=== PATIENT | female | born 1925 | race Caucasian/White ===

== ENCOUNTER → 2016-03-16 | Outpatient (CLI) | payer OTHER ==
[~2016-03-16] MED LIST: AMLO2.5T PO; ASPEC81 PO; ATOR-24 PO; ATV1 PO; BIMA0.01 OP; CALC500C70 PO; CZR50 PO; DORZ1SOL6 OP; LOSA1TAB38 PO; LPR25 PO; MAGN250T3 PO; MULT-506 PO; OMEG10007 PO; OMEP40CA PO; PSYL55.43 PO; PYRI100T4 PO; SYN75 PO; VITA1TAB4 PO; XRL15 PO; [UNRECOGNIZED DRUG - CODE] OTB
--- NOTE | 2016-03-16 16:45 | DIAGNOSTIC IMAGING REPORT ---
CHEST 2 VIEWS ROUTINE CLINICAL HISTORY: PERSISTENT COUGH AFG TER CLINICAL PNEUMONIA dyspnea COMPARISON STUDY: 12/30/2013 FINDINGS: Chronic fibrotic change left base. Lungs otherwise are clear. Postoperative change of the right breast and right axillary region. IMPRESSION: Chronic and postoperative change. No acute process. Electronically signed by: Merrill Moulton M.D. 03/16/2016 4:43 PM
== END | disposition home or self-care (01) ==
LOC: C.RAD 16:13
PROVIDERS: ATTEND Family Medicine
DX: R05 Cough (principal); C91.10 Chronic lymphocytic leukemia of B-cell type not having achieved remission

== ENCOUNTER → 2016-11-02 | Outpatient (CLI) | payer OTHER ==
[~2016-11-02] MED LIST changes: -AMLO2.5T PO; -ATOR-24 PO; -CZR50 PO; -LOSA1TAB38 PO; -LPR25 PO; -PYRI100T4 PO; -VITA1TAB4 PO; -XRL15 PO
--- NOTE | 2016-11-02 16:50 | DIAGNOSTIC IMAGING REPORT ---
TWO VIEW CHEST CLINICAL HISTORY: Cough. FINDINGS: PA and lateral chest radiographs are compared to study dated 03/16/2016. The heart is enlarged and there is atherosclerotic calcification of the thoracic aorta. The pulmonary vasculature is noncongested. Findings suggest obstructive physiology. Chronic interstitial thickening is similar to previous. No airspace consolidation or pleural effusion is identified. A nipple shadow projects over the right lower lung. There is no pneumothorax. The bony thorax appears intact. Surgical clips project over the right breast and the right axilla. IMPRESSION: Cardiomegaly and suspect obstructive physiology. No airspace consolidation or pleural effusion is identified. Electronically signed by: Karan Miller M.D. 11/02/2016 4:49 PM Dictated Date/Time: 11/02/2016 4:47 PM
== END | disposition home or self-care (01) ==
LOC: C.RAD 15:51
PROVIDERS: ATTEND Family Medicine
DX: R05 Cough (principal)

== ENCOUNTER → 2017-01-03 | Outpatient (CLI) | payer OTHER ==
--- NOTE | 2017-01-03 13:36 | DIAGNOSTIC IMAGING REPORT ---
(CHEST) THORAX WITHOUT CLINICAL HISTORY: R05 cough. Interstitial lung disease. I COMPARISON STUDY: Chest x-ray dated 11/02/2016 CT DOSE: 205.97 mGy.cm TECHNIQUE: CT of the thorax was performed from the thoracic inlet to the lung bases. Images are reviewed in the axial, sagittal, and coronal planes. IV contrast was not administered for this examination. A dose lowering technique was utilized adhering to the principles of ALARA. FINDINGS: Thyroid: Imaged portions of the thyroid gland are normal in appearance. Thoracic aorta: The thoracic aorta is normal in course and caliber, noting standard 3 vessel arch anatomy. Heart: There are coronary artery calcifications present. Lungs and pleural spaces: No pleural effusions are visualized. There is pulmonary emphysema. There are right middle lobe bronchiectatic and atelectatic changes. There are branching tubular structures within the left lower lobe, consistent with mucoid impaction. There are tree-in-bud opacities within the right lower lobe. Areas of mucoid impaction within the right lower lobe are also present. There is a solid 5 mm left lower lobe pulmonary nodule as visualized in image #[id number]. There is a solid 3 mm right lower lobe pulmonary nodule as visualized on image #[id number]. Mediastinum: There are mildly enlarged mediastinal lymph nodes measuring up to 12 mm in short axis Stefanie: Left hilar lymph nodes are felt to be borderline enlarged Axilla: There are surgical clips within the right axilla. There are borderline enlarged left axillary lymph nodes. Upper abdomen: Partially visualized upper abdominal viscera is within normal limits. Skeletal structures: There are no lytic or blastic osseous lesions. IMPRESSION: 1. Mild mediastinal lymphadenopathy 2. Borderline enlarged left axillary lymph nodes 3. Emphysema 4. Areas of bronchiectasis and associated atelectasis within the right middle lobe and anterior aspect of the left lower lobe 5. Scattered areas of mucoid impaction including branching tubular structures within the left lower lobe. While nonspecific, this finding is reported in aspergillus infection 6. 5 mm left lower lobe pulmonary nodule and 3 mm right lower lobe pulmonary nodule. In a high risk patient, a 12 month follow-up is optional Please refer to below summary of Fleischner criteria recommendations for follow-up of incidental CT nodules (Niko Malik, Guidelines for management of small pulmonary nodules detected on CT scans: A statement from the Fleischner Society, Radiology 237: [phone].) SOLID NODULES Solitary nodule size: <6 mm * low risk patients: no follow-up needed * high risk patients: optional CT at 12 months Solitary nodule size: 6-8 mm * low risk patients: follow-up at 6-12 months, then consider further follow-up at 18-24 months * high risk patients: initial follow-up CT at 6-12 months and then at 18-24 months if no change Solitary nodule size: >8 mm * either low or high risk patients - consider follow-up CT at 3 months, and/or CT-PET, and/or biopsy Multiple nodules size: <6 mm * low risk patients: no routine follow-up * high risk patients: optional CT at 12 months Multiple nodules size: 6-8 mm * low risk patients: follow-up at 3-6 months, then consider further follow-up at 18-24 months * high risk patients: follow-up at 3-6 months, then at 18-24 months if no change Multiple nodules size: >8 mm * low risk patients: follow-up at 3-6 months, then consider further follow-up at 18-24 months * high risk patients: follow-up at 3-6 months, then at 18-24 months if no change Note: newly detected indeterminate nodule in persons 35 years of age or older. * low risk patients: minimal or absent history of smoking and/or other known risk factors * high risk patients: history of smoking or of other known risk factors (e.g. first degree relative with lung cancer, or exposure to asbestos, radon, uranium) * if a nodule up to 8 mm is partly solid or is ground glass further follow-up is required after 24 months to exclude possible slow growing adenocarcinoma (KUN) SUBSOLID NODULES Solitary pure ground-glass nodule * nodule size <6 mm - no CT follow-up required * nodule size >=6 mm - follow-up CT at 6-12 months, then every 2 years until 5 years Solitary part-solid nodule * nodule size <6 mm - no CT follow-up required * nodule size >=6 mm - follow-up CT at 3-6 months. If unchanged, and solid component remains <6 mm, then annual follow-up for 5 years Multiple subsolid nodules * nodule size <6 mm - follow-up CT at 3-6 months, consider further follow-up at 2 and 4 years if stable * nodule size >=6 mm - follow-up CT at 3-6 months, subsequent management based on the most suspicious nodule(s) Electronically signed by: Nii Blount M.D. 01/03/2017 1:34 PM Dictated Date/Time: 01/03/2017 1:25 PM
== END | disposition home or self-care (01) ==
LOC: C.CTS 13:10
PROVIDERS: ATTEND Physician Assistant
DX: R05 Cough (principal)

== ENCOUNTER → 2017-02-08 | Day surgery (SDC) | payer OTHER ==
[2017-01-26 10:03] LABS: MEAN CORPUSCULAR HGB CONC 33.3 g/dl (32-36); MEAN PLATELET VOLUME 9.9 fL (7.4-10.4); PLATELET COUNT 145 K/uL (130-400); RED BLOOD COUNT 4.14 M/uL (4.2-5.4); WHITE BLOOD COUNT 11.39 K/uL (4.8-10.8)
[2017-01-26 10:14] LABS: PROTHROMBIN TIME (PATIENT) 10.4 SECONDS (9.0-12.0)
[2017-01-26 10:32] LABS: BLOOD UREA NITROGEN 13 mg/dl (7-18); BUN/CREATININE RATIO 18.4 (10-20); CALCIUM 9.2 mg/dl (8.5-10.1); CARBON DIOXIDE 27 mmol/L (21-32); CHLORIDE 100 mmol/L (98-107); CREATININE 0.72 mg/dl (0.60-1.20); GLUCOSE 85 mg/dl (70-99); POTASSIUM 4.2 mmol/L (3.5-5.1); SODIUM 136 mmol/L (136-145)
[2017-01-26 10:58] LABS: EOSINOPHIL % 0.9 %; LYMPH ABS # 8.06 K/uL (1.2-3.4); LYMPHOCYTE % 70.8 %; NEUTROPHILS % 26.5 %; SMUDGE CELLS PRESENT
[2017-01-26 11:16] LABS: COMPLETE YES
[2017-01-30 15:31] LABS: ASPERGILLUS FLAVUS Negative (Negative); ASPERGILLUS FUMIGATUS Negative (Negative); ASPERGILLUS NIGER Negative (Negative)
[2017-02-08] VITALS (20 sets, daily range): BP systolic 108–167; BP diastolic 59–80; PULSE 67–92; TEMP 36.6–37.2; O2SAT 87–100
[~2017-02-08] MED LIST changes: +FENTANYL CITRATE INJ 50 MCG/1 ML 2 ML VIAL IV ONE; +MIDAZOLAM HCL 5 MG/ML 1 ML VIAL IV ONE; +NURSING VERBAL MED ORDER ONE
--- NOTE | 2017-02-08 08:22 | History & Physical Bridge Note ---
H&P Re-Evaluation Bridge Note: I have examined the patient, reviewed the History & Physical and in the interval since the performance of the History & Physical I have noted the following changes of clinical significance: No changes noted
--- NOTE | 2017-02-08 08:22 | History and Physical ---
History & Physical Date of Service Feb 08, 2017. History & Physical AssessmentSectionEnd PlanSectionStart Plan Two bronchoscopy with bronchial lavage of the right middle lobe as well as anterior subsegment of the left lower lobe these have the most bronchiectatic changes 89-yo female here from bronchoscopy secondary to workup for chronic cough with abnormal CT noting bronchiectatic changes especially in the right middle lobe and anterior subsegment of the left lower lobe. PMHx includes: All original reflux disease, hypertension, and glaucoma. She is a life-long non-smoker with second hand exposure through her late . No occupational exposures. Beginning December 2015 patient reported h/o dx with pneumonia. Prior to this, she denied frequent or sever respiratory illness or symptoms. Symptoms improved significantly post treatment with antibiotic however cough never fully resolved despite advancement of anti-reflux regimen, discontinuation of lisinopril and compliance with nasal spray. She reports cough may occur 1-3 x daily with a sensation of a "tickle" in the throat. Cough may produce a coin sized amount of green sputum. Chest x-ray 03/16/2016: Chronic fibrotic change at the left base. Otherwise these are clear. No infiltrate or acute cardiopulmonary process. Chest x-ray 11/02/2016: Chronic interstitial thickening as noted on previous imaging. No acute cardiopulmonary process. Patient was evaluated by ENT and there were no findings consents with her symptoms. 01/03/[address] chest (as below). On exam/interview today she reports her cough is unchanged. She denies fevers, chills, wheeze, chest pain or dyspnea. The results of her CT were reviewed: CT 01/03/17: IMPRESSION "1. Mild mediastinal lymphadenopathy 2. BOrderline enlarged left axillary lymph nodes 3. Emphysema 4. Areas of bronchiectasis and associated atelectasis within the right middle lobe and anterior aspect of the left lower lobe 5. Scattered areas of mucoid impaction including branching tubular structures within the left lower lobe. While nonspecific, this finding is reported in aspergillus infection 6. 5mm left lower lobe pulmonary nodule and 3mm right lower lobe pulmonary nodule. " PmHx: 1.Abnormal chest x-ray 2.Cough 3.Hearing loss 4.Hoarseness 5.Hypertension 6.Impacted cerumen of both ears 7.Interstitial lung disease 8.Laryngopharyngeal reflux 9.Vasomotor rhinitis Surgical History 1. History of Breast Surgery Lumpectomy 2. Influenza vaccine needed 3. History of Tonsillectomy With Adenoidectomy Family History . Family history of Congestive Heart Failure 2. Family history of Stroke Syndrome Social History Alcohol Use (History) Never smoker Denied: History of Smoking Cigarettes Current Meds 1.Doxycycline Hyclate 100 MG Oral Capsule; TAKE 1 CAPSULE EVERY 12 HOURS UNTIL GONE 2.AmLODIPine Besylate 2.5 MG Oral Tablet; TAKE 1 TABLET DAILY DIRECTED 3.Aspir-81 81 MG Oral Tablet Delayed Release; TAKE 1 TABLET DAILY 4.B-6 250 MG Oral Tablet; TAKE 1 TABLET DAILY DIRECTED; 5.Caltrate 600 TABS; 6.Fish Oil 1000 MG Oral Capsule 7.Levothyroxine Sodium 75 MCG Oral Tablet 8.Losartan Potassium 100 MG Oral Tablet; TAKE 1 TABLET DAILY 9.Lumigan SOLN; 10.Magnesium 500 MG Oral Capsule; TAKE DIRECTED 11.Metamucil POWD; 12.Multi-Day Vitamins TABS 13.Omeprazole 20 MG Oral Capsule Delayed Release; TAKE 2 CAPSULES DAILY 14.Vitamin D 1000 UNIT Oral Tablet; TAKE 1 TABLET DAILY 15.Vitamin E 100 UNIT Oral Capsule Allergies 1. Ceclor CAPS Vital Signs Height: 5 ft 5 in Weight: 131 lb BMI Calculated: 21.8 BSA Calculated: 1.65 Temperature: 98.7 F O2 Saturation: 97, RA Heart Rate: 76 Respiration: 18 Blood Pressure: 122 / 86, LUE, Sitting Physical Exam Constitutional: Well developed, well nourished elderly female No acute distress. Head: + facial symmetry Eyes: EOMi, PERRLA, no conjunctival injection Mouth: Moist mucous membranes. No erythema, exudate, or post nasal gtt Neck: Trachea midline. No adenopathy or masses Respiratory: Non-labored respirations. Intermittent dry cough and throat clearing during exam. No wheeze, rales or rhonchi. No clubbing or cyanosis. Cardiovascular: RRR, no MRG. +2 radial pulses. <1s capillary refill. Abdomen: soft, active bowel sounds Integumentary: no rashes, or ecchymosis MSK/Extremities: Moving and developed symmetrically. No peripheral edema. Varicosities bilaterally. No calf tenderness. Neurologic: A&O, data recall in-tact. Appropriate affect.
--- NOTE | 2017-02-08 08:23 | Procedure Note ---
Pre-Mod Sedation Assessment General Date of Moderate Sedation: Feb 08, 2017. Review Cardiovascular: regular rate, rhythm, no edema, no gallop, no JVD, no murmur, normal peripheral pulses Abdomen: normal bowel sounds, non tender, soft, no organomegaly, no pulsatile mass, normal rectal exam Lungs: chest non-tender, lungs clear, normal breath sounds, no respiratory distress Airway Class: II Pre-Sedation Airway Assessment Oral Cavity: WNL Able to Visualize Vocal Cords: Yes Short Thick Neck: No Hx of Sleep Apnea: Yes Smoking Status: Never Smoker Mallampati Classification: Class II ASA Classification: Class II Procedure Planning Contraindications-for Mod Sed: None Yes Notes The planned sedation has been discussed with the patient and consent obtained. I have identified the patient, determined the appropriateness of sedation and have assessed the patient immediately prior to the procedure. All medicine(s) and interventions are by my order.
--- NOTE | 2017-02-08 09:23 | Bronchoscopy Procedure Note ---
Bronchoscopy Procedure Note Procedure: Bronchoscopy, conscious sedation, bronchial lavage (right middle lobe and left lower lobe) Consent: Obtained through the patient placed into the chart Pre-procedural diagnosis: Chronic cough Post-procedural diagnosis: Chronic cough with bronchiectasis of the right middle lobe and left lower lobe Start time: 854 End time: 915 Total time: 21minutes Analgesia: 2% liquid lidocaine: Via nebulizer 4% gel lidocaine: Via right naris 2% liquid lidocaine: Via bronchoscopy Sedation: Versed IV: 3mg Fentanyl IV: 50 g Procedure: The ThromboVision video bronchoscope was used for this procedure and passed down through the right naris Right naris/posterior naris/posterior oropharynx: Bilateral mild nasal erythema Glottis: Anatomically within normal limits Vocal cords: Proper abduction and abduction, anatomically within normal limits Subglottis/trachea/Pricilla: Anatomically within normal limits Right bronchial tree: Right mainstem bronchus: Anatomically within normal limits Right upper lobe: Anatomically within normal limits Bronchus intermedius: Anatomically within normal limits Right middle lobe: Anatomically within normal limits Right lower lobe: Anatomically within normal limits Findings: No significant findings noted Left bronchial tree: Left mainstem bronchus: Anatomically within normal limits Left upper lobe: Anatomically within normal limits Lingula: Anatomically within normal limits Left lower lobe: Notable collapse on expiration with diffuse mucous plugs Findings: Diffuse mucous plugs coming from the left lower lobe Bronchial alveolar lavage: Performed of the right middle lobe and left lower lobe EBL: None Complications: None Follow-up: ASU
--- NOTE | 2017-02-08 11:48 | Discharge Instructions ---
Discharge Instructions Date of Service Feb 08, 2017. Admission Reason for Admission: Cough, Bronchiectasis, Interstitial Lung Ds Discharge Discharge Diagnosis / Problem: Cough, Bronchiectasis, Interstitial Lung Dz Discharge Goals Goal(s): Diagnostic testing Activity Recommendations Activity Limitations: resume your previous activity . Instructions / Follow-Up Instructions / Follow-Up Follow up with [facility] [place] Pulmonary clinic Current Hospital Diet Patient's current hospital diet: Discharge Diet Recommended Diet: Regular Diet Pending Studies Studies pending at discharge: no Medical Emergencies . Who to Call and When: Medical Emergencies: If at any time you feel your situation is an emergency, please call 911 immediately. . Non-Emergent Contact Non-Emergency issues call your: Primary Care Provider . . "Provider Documentation" section prepared by Janet Covington. . VTE Core Measure Inpt VTE Proph given/why not?: Treatment not indicated
== END | disposition home or self-care (01) ==
LOC: C.ACU 07:31
PROVIDERS: ATTEND Internal Medicine Critical Care Medicine
DX: J47.1 Bronchiectasis with (acute) exacerbation (principal); J43.9 Emphysema, unspecified; R05 Cough; R91.8 Other nonspecific abnormal finding of lung field; R59.0 Localized enlarged lymph nodes; J84.9 Interstitial pulmonary disease, unspecified; I10 Essential (primary) hypertension; H40.9 Unspecified glaucoma; Z77.22 Contact with and (suspected) exposure to environmental tobacco smoke (acute) (chronic); Z79.899 Other long term (current) drug therapy

== ENCOUNTER 2017-02-20 16:04 | Inpatient (IN) | payer OTHER ==
[~2017-02-20] VITALS: Ht 162.6 cm; Wt 61.0 kg
[~2017-02-20 16:04] MED LIST changes: -FENTANYL CITRATE INJ 50 MCG/1 ML 2 ML VIAL IV ONE; -MIDAZOLAM HCL 5 MG/ML 1 ML VIAL IV ONE; -NURSING VERBAL MED ORDER ONE
[2017-02-20] MEDS ORDERED: SODIUM CHLORIDE 0.9% 1000ML 1,000 ML IV ONE (16:16)
[2017-02-20] MEDS ORDERED: ONDANSETRON INJ 2 MG/ML 2 ML VIAL IV STA (16:16)
--- NOTE | 2017-02-20 16:22 | EMERGENCY ROOM VISIT NOTE ---
History Report prepared by Patricia: Twan Bingham Under the Supervision of: Radha JohnsonO. First contact with patient: 16:12 Chief Complaint: WEAKNESS Stated Complaint: NAUSEA, WEAKNESS, NO APPETITE -REFERRED BY DOC History of Present Illness The patient is an 89 year old female with a history of CLL who presents to the Emergency Room with complaints of worsening weakness over the past few weeks. Per the patient's family, the patient had a bronchoscopy on the 08 of February because she had been coughing a lot. The patient also had a recent E.coli infection in both her lungs. Per the patient's family, the patient has not seemed to recover from that, and she has had worsening extreme fatigue. The patient has also been nauseated recently with a few episodes of vomiting. The patient notes that this is the worst she has ever felt in her life. She denies any shortness of breath, chest pain, abdominal pain, or fevers. She states that she was on Bactrim, but was told to go off of it due to a bad reaction to the medication. She notes a history of breast cancer. Per the patient's family, the patient was called and told to come here by her primary care doctor, specifically to treat the nausea and receive some Zofran. Source of History: patient, family Onset: Past few weeks Position: other (global - weakness) Symptom Intensity: worst ever felt in life Timing: worsening Associated Symptoms: + nausea, + vomiting, + fatigue, No fevers, No chest pain, No SOB, No abdominal pain Review of Systems See HPI for pertinent positives & negatives. A total of 10 systems reviewed and were otherwise negative. Past Medical & Surgical Medical Problems: (1) Breast CA (2) Breast cancer (3) CLL (chronic lymphocytic leukemia) (4) Dehydration (5) Glaucoma (6) HTN (hypertension), benign Surgical Problems: (1) History of lumpectomy (2) History of tonsillectomy (3) S/P bronchoalveolar lavage Social History Problems: (1) Second hand smoke exposure Family History FH: hypertension FH: kidney disease FHx: heart disease Kidney stone Social History Smoking Status: Never Smoker Alcohol Use: occasionally Drug Use: none Marital Status: Housing Status: lives with family Occupation Status: unemployed Current/Historical Medications Scheduled Amlodipine (Norvasc), 2.5 MG PO DAILY Aspirin Enteric Coated (Ecotrin Or Generic *), 81 MG PO DAILY Bimatoprost (Lumigan), 1 DROPS OP HS Calcium/Vitamin D (Os-Gil 500 Plus D), 1 TAB PO BID Fish Oil ([place]-3), 1 CAP PO DAILY Levothyroxine (Synthroid *), 0.075 MG PO DAILY Losartan Potassium (Cozaar), 100 MG PO QAM Magnesium (Magnesium 250 mg), 500 MG PO DAILY Multivitamin (Multivitamin), 1 TAB PO DAILY Psyllium (Metamucil Powder), 1 PACK PO DAILY Pyridoxine (Vitamin B6), 100 MG PO DAILY Vitamin E (Vitamin E), 800 MG PO DAILY Scheduled PRN Lorazepam (Lorazepam), 1 MG PO DAILY PRN for Insomnia Allergies Coded Allergies: Cefaclor (Verified Allergy, Unknown, RASH, 02/20/17) Dorzolamide (Verified Allergy, Unknown, SWELLING OF EYES, 02/20/17) CANT USE THE ONE WITH THE PRESERVATIVES. CAN USE PRESERVATIVE FREE Timolol (Verified Allergy, Unknown, SWELLING OF EYES, 02/20/17) CANT USE THE ONE WITH THE PRESERVATIVES. CAN USE PRESERVATIVE FREE Physical Exam Vital Signs Date Time Temp Pulse Resp B/P (MAP) Pulse Ox O2 Delivery O2 Flow Rate FiO2 02/20/17 18:00 76 18 95/58 98 Room Air 02/20/17 16:58 96 Room Air 02/20/17 16:07 36.3 95 18 80/50 98 Room Air Physical Exam GENERAL: Patient is listless but does not appear to be in pain. EYES: The conjunctivae are clear. The pupils are round and reactive. EARS, NOSE, MOUTH AND THROAT: The nose is without any evidence of any deformity. Mucous membranes are moist tongue is midline NECK: The neck is nontender and supple. RESPIRATORY: Lung sounds were diminished throughout. There were rales at the right base. No specific tachypnea or conversational dyspnea noted. CARDIOVASCULAR: Regular rate and rhythm noted there no murmurs rubs or gallops normal S1 normal S2 GASTROINTESTINAL: The abdomen is soft. Bowel sounds are present in all quadrants. Abdomen is nontender MUSCULOSKELETAL/EXTREMITIES: There is no evidence of gross deformity full range of motion is noted in the hips and shoulders SKIN: Trace pedal edema bilaterally. A fine reticular rash on both lower extremities. NEUROLOGIC: Patient is awake alert and oriented x3. Medical Decision & Procedures ER Provider Diagnostic Interpretation: Radiology results as stated below per my review and radiologist interpretation: SINGLE VIEW CHEST CLINICAL HISTORY: Sepsis. FINDINGS: An AP, portable, upright chest radiograph is compared to study dated 11/02/2016 and correlated with chest CT dated 01/03/2017. The examination is degraded by portable technique and patient rotation. The heart is enlarged and there is atherosclerotic calcification of the thoracic aorta. The pulmonary vasculature is noncongested. Emphysema and chronic interstitial thickening are similar to previous. There are bibasilar opacities. No large pleural effusion or pneumothorax is seen. The skeletal structures are osteopenic. The bony thorax is grossly intact. Surgical clips are seen in the right axilla and projecting over the right breast. IMPRESSION: 1. Cardiomegaly and emphysema. 2. There are bibasilar airspace opacities which likely represent scarring/atelectasis. Correlate clinically for evidence of superimposed pneumonia. Electronically signed by: Karan Miller M.D. 02/20/2017 4:41 PM Dictated Date/Time: 02/20/2017 4:[address] SCAN OF THE BRAIN WITHOUT IV CONTRAST CLINICAL HISTORY: Generalized weakness. COMPARISON STUDY: CT of the brain dated 11/18/2007. TECHNIQUE: Unenhanced axial CT scan of the brain is performed from the vertex to the skull base. CT DOSE: 614.27 mGy.cm FINDINGS: Brain parenchyma: There are age-related involutional changes noting mild subcortical and periventricular microangiopathic change. There is no hemorrhage, mass effect, or evidence of acute territorial ischemia by CT criteria. Plunkett-white matter is preserved. No extra-axial fluid collection is seen. Ventricles, sulci, cisterns: Prominent secondary to involutional change. Intracranial vasculature: There is atherosclerotic calcification of the cavernous carotid and vertebral arteries. Calvarium: Unremarkable. Sinuses and mastoids: The visualized paranasal sinuses are clear. The mastoid air cells are well pneumatized. Orbits: The bony orbits are grossly intact. There are bilateral ocular lens implants. IMPRESSION: There is no hemorrhage, mass effect, or evidence of acute territorial ischemia by CT criteria. Electronically signed by: Karan Miller M.D. 02/20/2017 6:23 PM Dictated Date/Time: 02/20/2017 6:[address] ANGIOGRAM OF THE CHEST CLINICAL HISTORY: Nausea. Weakness. COMPARISON STUDY: Chest CT dated 01/03/2017. Chest x-ray dated 02/20/2017. TECHNIQUE: Following the IV administration of 113 cc of Optiray 320, CT angiogram of the chest was performed from the upper abdomen to the thoracic inlet utilizing the pulmonary embolus protocol. Images are reviewed in the axial, sagittal, and coronal planes. 3-D MIPS images are created and assessed. IV contrast was administered without complication. A dose lowering technique was utilized adhering to the principles of ALARA. CT DOSE: 207.71 mGy.cm FINDINGS: Thyroid: Atrophic. Thoracic aorta: There is atherosclerotic calcification of the thoracic aorta, which is normal in caliber and demonstrates standard 3-vessel arch anatomy. No dissection is seen. Pulmonary vasculature: The main pulmonary arteries are mildly dilated suggesting pulmonary artery hypertension. There are no filling defects identified in main, lobar, or segmental pulmonary branches to suggest pulmonary embolus. Heart: The heart is enlarged and without pericardial effusion. Coronary arteries are densely calcified. Lungs and pleural spaces: Evaluation of lung parenchyma is modestly degraded by motion artifact. Emphysema is again noted. There are small pleural effusions with associated bibasilar atelectasis. Foci of linear scarring versus atelectasis are present in the lower lobes. An 8 mm pleural-based nodule is seen in the right lower lobe on image #123. A 7 mm pulmonary nodule seen in the left lower lobe on image #137. These are similar to the 01/03/2017 examination. Mild intralobular septal thickening is suggested. The trachea appears clear. Mediastinum: There are numerous mildly enlarged mediastinal lymph nodes. Prevascular nodes measure up to 1.1 cm in short axis. Precarinal nodes measure up to 1.1 cm in short axis. A subcarinal node measures up to 1.5 cm in short axis. Stefanie: There is hilar adenopathy. Enlarged hilar nodes measure up to 1.6 cm in short axis. Axillae: Surgical clips are noted in the right axilla. There are mildly enlarged left axillary lymph nodes. The largest is seen on image #277, measuring 1.3 x 1.0 cm. These are similar to the 01/03/2017 examination. Upper abdomen: Fluid fills the esophagus to the level of the thoracic inlet. A moderate hiatal hernia is noted. 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 Skeletal structures: No lytic or blastic bony lesions are seen. IMPRESSION: 1. There is no evidence of pulmonary embolus in the main, lobar, or segmental pulmonary arteries. 2. Cardiomegaly and emphysema. Mild intralobular septal thickening is noted and may represent congestive change. Clinical correlation will be required. 3. Small pleural effusions with bibasilar atelectasis. 4. Pulmonary and pleural-based nodules measuring up to 8 mm are pathologically indeterminant and similar to the 01/03/2017 examination. 5. Mildly enlarged mediastinal, hilar, and left axillary lymph nodes are similar to previous. 6. The esophagus is filled with fluid to the level of the thoracic inlet. Note that this may place the patient at risk for aspiration. Electronically signed by: Karan Miller M.D. 02/20/2017 6:32 PM Dictated Date/Time: 02/20/2017 6:24 PM Laboratory Results Test 02/20/17 16:35 02/20/17 16:48 Smudge Cells PRESENT Echinocytes 1+ Erythrocyte Sedimentation Rate 14 mm/hr (0-21) Prothrombin Time 10.2 SECONDS (9.0-12.0) Prothromb Time International Ratio 1.0 (0.9-1.1) Activated Partial Thromboplast Time 27.0 SECONDS (21.0-31.0) Partial Thromboplastin Ratio 1.0 Osmolality 265 mOsm/kg (280-300) Phosphorus Level 2.4 mg/dl (2.5-4.9) Magnesium Level 2.4 mg/dl (1.8-2.4) Total Bilirubin 0.3 mg/dl (0.2-1) Aspartate Amino Transf (AST/SGOT) 28 U/L (15-37) Alanine Aminotransferase (ALT/SGPT) 28 U/L (12-78) Alkaline Phosphatase 62 U/L (45-117) Total Creatine Kinase 64 U/L (26-192) Creatine Kinase MB 10.4 ng/ml (0.5-3.6) Creatine Kinase MB Ratio 16.3 (0-3.0) C-Reactive Protein 4.44 mg/dl (0-0.29) Total Protein 5.9 gm/dl (6.4-8.2) Albumin 2.9 gm/dl (3.4-5.0) Globulin 3.0 gm/dl (2.5-4.0) Albumin/Globulin Ratio 1.0 (0.9-2) Lipase 175 U/L (73-393) Random Cortisol 35.80 mcg/dl Bedside Lactic Acid Venous 3.54 mmol/L (0.90-1.70) Laboratory results per my review. Medications Administered Medications (Trade) Dose Ordered Sig/Marco A Route Start Time Stop Time Status Last Admin Dose Admin Sodium Chloride 1,000 ml @ 999 mls/hr Q1H1M ONCE IV 02/20/17 16:16 02/20/17 17:16 DC 02/20/17 17:09 999 MLS/HR Ondansetron HCl (Zofran Inj) 4 mg NOW STAT IV 02/20/17 16:16 02/20/17 16:18 DC 02/20/17 17:09 4 MG Sodium Chloride 1,000 ml @ 100 mls/hr Q10H IV 02/20/17 19:00 02/21/17 18:59 DC 02/21/17 17:22 100 MLS/HR ECG Indication: weakness Rate (beats per minute): 87 Rhythm: normal sinus Findings: T-wave inversion (anterior and lateral), no ectopy Comparison ECG Date: changes are new compared to 06/26/15 ED Course 1614: The patient was evaluated in room C6. A complete history and physical examination were performed. 1616: Ordered Zofran Inj 4 mg IV, NSS 1000 ml @ 999 mls/hr IV. 1656: I reevaluated and updated the patient. 1758: I discussed the patient's case with Dr. Rust - [facility] vocational psychologist. The patient will be evaluated for further management. 1800: Upon reevaluation, the patient is resting. I discussed results and treatment plan with her and family. The patient verbalizes agreement and understanding. The patient will be evaluated for further management and care. 1931: I reevaluated and updated the patient. Medical Decision Differential diagnosis: Etiologies such as metabolic, infection, hypo/hyperglycemia, electrolyte abnormalities, cardiac sources, intracerebral event, toxicologic, neurologic, as well as others were entertained. Nursing notes reviewed. Additional history is obtained from the patient's friends. The patient is an 89-year-old female who presented to the emergency department for evaluation of generalized weakness. The patient was seen by her primary point. She had some recent pulmonary infections and was treated with Bactrim. The patient recently stopped the Bactrim because she developed a rash. It was felt to be due to an allergic reaction. The patient had multiple complaints and was found have an abnormal EKG and an elevated troponin. She was also found have significant hyponatremia and hypotension. She was treated with IV fluids initially. She was also given IV antiemetics. She was reevaluated multiple times. She did not have chest pain. The patient's CAT scan of the head did not show any acute intracranial abnormality. CT the chest did not show any signs of pulmonary embolism. At this time I feel this could represent cardiac ischemia but also could represent a secondary process leading to cardiac ischemia. I discussed his case with the on-call [facility] hospitalist. They've agreed to evaluate the patient in the emergency department for further management and disposition. I will defer any anticoagulation therapy to their evaluation given the patient does not have symptoms which could be related to cardiac ischemia at this time. Medication Reconcilliation Current Medication List: was personally reviewed by me Blood Pressure Screening Patient's blood pressure: Low blood pressure Referred to hospitalist. Consults Time Called: 1755 Consulting Physician: Dr. Barrera [facility] vocational psychologist Returned Call: 1758 I discussed the patient's case with Dr. Barrera [facility] vocational psychologist. The patient will be evaluated for further management. Impression Primary Impression: NSTEMI (non-ST elevated myocardial infarction) Additional Impressions: Weakness Hyponatremia Hypotension Scribe Attestation The scribe's documentation has been prepared under my direction and personally reviewed by me in its entirety. I confirm that the note above accurately reflects all work, treatment, procedures, and medical decision making performed by me. Departure Information Dispostion Being Evaluated By Hospitalist Referrals Myrna Chavez M.D. (PCP) Patient Instructions My [facility] Problem Qualifiers Additional Impressions: Hypotension Hypotension type: unspecified hypotension type Qualified Codes: I95.9 - Hypotension, unspecified
--- NOTE | 2017-02-20 16:43 | DIAGNOSTIC IMAGING REPORT ---
SINGLE VIEW CHEST CLINICAL HISTORY: Sepsis. FINDINGS: An AP, portable, upright chest radiograph is compared to study dated 11/02/2016 and correlated with chest CT dated 01/03/2017. The examination is degraded by portable technique and patient rotation. The heart is enlarged and there is atherosclerotic calcification of the thoracic aorta. The pulmonary vasculature is noncongested. Emphysema and chronic interstitial thickening are similar to previous. There are bibasilar opacities. No large pleural effusion or pneumothorax is seen. The skeletal structures are osteopenic. The bony thorax is grossly intact. Surgical clips are seen in the right axilla and projecting over the right breast. IMPRESSION: 1. Cardiomegaly and emphysema. 2. There are bibasilar airspace opacities which likely represent scarring/atelectasis. Correlate clinically for evidence of superimposed pneumonia. Electronically signed by: Karan Miller M.D. 02/20/2017 4:41 PM Dictated Date/Time: 02/20/2017 4:40 PM
[2017-02-20 16:57] LABS: HEMATOCRIT 36.8 % (37-47); MEAN CELL VOLUME 83.8 fL (80-100); MEAN CORPUSCULAR HEMOGLOBIN 29.2 pg (25-34); MEAN CORPUSCULAR HGB CONC 34.8 g/dl (32-36); MEAN PLATELET VOLUME 9.6 fL (7.4-10.4); PLATELET COUNT 230 K/uL (130-400); RED BLOOD COUNT 4.39 M/uL (4.2-5.4); WHITE BLOOD COUNT 12.58 K/uL (4.8-10.8)
[2017-02-20 17:08] LABS: PROTHROMBIN TIME (PATIENT) 10.2 SECONDS (9.0-12.0)
[2017-02-20 17:16] LABS: BUN/CREATININE RATIO 23.2 (10-20); CALCIUM 8.9 mg/dl (8.5-10.1); CREATININE 0.93 mg/dl (0.60-1.20); MAGNESIUM 2.4 mg/dl (1.8-2.4); POTASSIUM 5.2 mmol/L (3.5-5.1)
[2017-02-20 17:22] LABS: C-REACTIVE PROTEIN 4.44 mg/dl (0-0.29); CKMB/CK RATIO 16.3 (0-3.0); PHOSPHORUS 2.4 mg/dl (2.5-4.9)
[2017-02-20] MEDS ORDERED: OPTIRAY 320 IV PRN (17:45)
--- NOTE | 2017-02-20 18:14 | History and Physical ---
History & Physical Date & Time of Service: Feb 20, 2017 at 18:07 Chief Complaint: Nausea, Weakness, No Appetite -Referred By Doc Primary Care Physician: Myrna Chavez M.D. History of Present Illness Source: patient This is a 89 yo F with PMHx of CLL, breast cancer s/p lumpectomy, HTN, hx of LLL pulmonary nodules, s/p bronchoscopy with lavage on 02/[address] Ziegler which identified E.coli in the lungs where the patient was placed on Bactrim. She presented to the pulmonary clinic today for routine follow up with increased generalized malaise. She also notes a rash which developed on bilateral thighs during use of Bactrim so was instructed to stop taking this. The patient was sent to the ER due to nausea, vomiting, and clinically dry appearance for labs and IVFs. The patient is seen with her brother Chi, and [id number] Pat at bedside who help supply history. Pt states "This is the worst I've ever felt in my life." She reports feeling worse since having a bronchoscopy completed on 02/08. Pt notes she has a heaviness over her chest, but denies pain or shortness of breath. She had taken a total of 7 days of Bactrim, and stopped due to a rash on her bilateral thighs which was thought to be an allergic reaction. At this point the rash has resolved. She notes being able to participate in ADLs, and lives independently at [facility]. She has been having ongoing nausea, dry heaves, and vomiting since the bronchoscopy. Pt denies hematemesis. She has only been able to drink coke and gingerale, and eat small amounts of food intermittently. She denies diarrhea or constipation, and last BM was this morning. She denies hematochezia or melena. She was found to have hyponatremia with Na = 120, hyperkalemia K= 5.2, and elevated troponin of 1.350. EKG was reviewed showing possible lateral ischemia with T wave inversion in the anterolateral leads CXR completed and reviewed CT chest neg for PE. There are known pulmonary nodules noted, small pleural effusions bilaterally, and esophagus is filled to level of the thoracic inlet. Past Medical/Surgical History Medical Problems: (1) Breast CA Status: Resolved (2) CLL (chronic lymphocytic leukemia) Status: Chronic (3) Glaucoma Status: Chronic (4) HTN (hypertension), benign Status: Chronic Surgical Problems: (1) History of lumpectomy Status: Resolved (2) History of tonsillectomy Status: Resolved Family History FH: hypertension FH: kidney disease FHx: heart disease Kidney stone Social History Smoking Status: Never Smoker Drug Use: none Marital Status: Occupational Status: unemployed Multi-Drug Resistant Organisms History of MDRO: No Allergies Coded Allergies: Cefaclor (Verified Allergy, Unknown, RASH, 02/20/17) Dorzolamide (Verified Allergy, Unknown, SWELLING OF EYES, 02/20/17) CANT USE THE ONE WITH THE PRESERVATIVES. CAN USE PRESERVATIVE FREE Timolol (Verified Allergy, Unknown, SWELLING OF EYES, 02/20/17) CANT USE THE ONE WITH THE PRESERVATIVES. CAN USE PRESERVATIVE FREE Uncoded Allergies: CECLOR/RASH (Allergy, Unknown, 04/25/02) Home Medications Scheduled Amlodipine (Norvasc), 2.5 MG PO DAILY Aspirin Enteric Coated (Ecotrin Or Generic *), 81 MG PO DAILY Bimatoprost (Lumigan), 1 DROPS OP HS Calcium/Vitamin D (Os-Gil 500 Plus D), 1 TAB PO DAILY Dorzolamide Hcl-Timolol Maleat (Cosopt Oph), 1 DROPS OP DAILY Fish Oil ([place]ago-3), 1 CAP PO DAILY Fluocinolone Acetonide (Otic) (Fluocinolone Acetonide Ea), 2 DROPS OTB WEEKLY Levothyroxine (Synthroid *), 0.075 MG PO DAILY Losartan Potassium (Cozaar), 1 TAB PO DAILY Magnesium (Magnesium 250 mg), 500 MG PO DAILY Multivitamin (Multivitamin), 1 TAB PO DAILY Omeprazole (Prilosec), 40 MG PO DAILY Psyllium (Metamucil Powder), 1 PACK PO DAILY Scheduled PRN Lorazepam (Lorazepam), 1 MG PO DAILY PRN for Insomnia Review of Systems Constitutional: + fatigue, No fever, No chills, No sweats, No weight loss Eyes: + problem reported (glaucoma), No diplopia ENT: No hearing loss, No nasal symptoms Respiratory: No cough, No sputum, No wheezing, No shortness of breath, No dyspnea on exertion Cardiovascular: No chest pain, No edema, No palpitations Abdomen: + nausea, + vomiting, No pain, No diarrhea, No constipation, No GI bleeding Musculoskeletal: No joint pain, No swelling, No calf pain Genitourinary - Female: + urinary incontinence (chronic), No dysuria, No hematuria Neurologic: + weakness, No memory loss, No numbness/tingling, No balance problems Psychiatric: No depression symptoms, No anxiety Endocrine: + fatigue Integumentary: + rash (bilateral thighs - has resolved), No itch Physical Exam Vital Signs Date Time Temp Pulse Resp B/P (MAP) Pulse Ox O2 Delivery O2 Flow Rate FiO2 02/20/17 16:58 96 Room Air 02/20/17 16:07 36.3 95 18 80/50 98 Room Air General Appearance: WD/WN, no apparent distress Head: normocephalic, atraumatic Eyes: PERRL, EOMI, + pertinent finding (+ glaucoma bilaterally) ENT: hearing grossly normal, pharynx normal, + pertinent finding (MM dry) Neck: supple, no JVD Respiratory/Chest: chest non-tender, no respiratory distress, no accessory muscle use, + pertinent finding (on room air, breath sounds clear throughout) Cardiovascular: regular rate, rhythm, + systolic murmur (grade II/) Abdomen/GI: normal bowel sounds, non tender, soft, no organomegaly Back: normal inspection, no CVA tenderness Extremities/Musculoskelatal: normal inspection, no calf tenderness, no pedal edema, + pertinent finding (no rash over BLE) Neurologic/Psych: alert, normal mood/affect, oriented x 3 Skin: normal color, warm/dry, no rash Diagnostics Laboratory Results Results Past 24 Hours Test 02/20/17 16:35 02/20/17 16:48 Range/Units White Blood Count 12.58 4.8-10.8 K/uL Red Blood Count 4.39 4.2-5.4 M/uL Hemoglobin 12.8 12.0-16.0 g/dL Hematocrit 36.8 37-47 % Mean Corpuscular Volume 83.8 80-100 fL Mean Corpuscular Hemoglobin 29.2 25-34 pg Mean Corpuscular Hemoglobin Concent 34.8 32-36 g/dl Platelet Count 230 130-400 K/uL Mean Platelet Volume 9.6 7.4-10.4 fL RDW Standard Deviation 49.3 36.4-46.3 fL RDW Coefficient of Variation 16.2 11.5-14.5 % Erythrocyte Sedimentation Rate 14 0-21 mm/hr Prothrombin Time 10.2 9.0-12.0 SECONDS Prothromb Time International Ratio 1.0 0.9-1.1 Activated Partial Thromboplast Time 27.0 21.0-31.0 SECONDS Partial Thromboplastin Ratio 1.0 Sodium Level 120 136-145 mmol/L Potassium Level 5.2 3.5-5.1 mmol/L Chloride Level 89 98-107 mmol/L Carbon Dioxide Level 24 21-32 mmol/L Anion Gap 7.0 3-11 mmol/L Blood Urea Nitrogen 22 7-18 mg/dl Creatinine 0.93 0.60-1.20 mg/dl Est Creatinine Clear Calc Drug Dose 36.9 ml/min Estimated GFR () 63.2 Estimated GFR (Non- 54.5 BUN/Creatinine Ratio 23.2 10-20 Random Glucose 127 70-99 mg/dl Calcium Level 8.9 8.5-10.1 mg/dl Phosphorus Level 2.4 2.5-4.9 mg/dl Magnesium Level 2.4 1.8-2.4 mg/dl Total Bilirubin 0.3 0.2-1 mg/dl Aspartate Amino Transf (AST/SGOT) 28 15-37 U/L Alanine Aminotransferase (ALT/SGPT) 28 12-78 U/L Alkaline Phosphatase 62 45-117 U/L Total Creatine Kinase 64 26-192 U/L Creatine Kinase MB 10.4 0.5-3.6 ng/ml Creatine Kinase MB Ratio 16.3 0-3.0 Troponin I 1.350 0-0.045 ng/ml C-Reactive Protein 4.44 0-0.29 mg/dl Total Protein 5.9 6.4-8.2 gm/dl Albumin 2.9 3.4-5.0 gm/dl Globulin 3.0 2.5-4.0 gm/dl Albumin/Globulin Ratio 1.0 0.9-2 Lipase 175 73-393 U/L Random Cortisol 35.80 mcg/dl Bedside Lactic Acid Venous 3.54 0.90-1.70 mmol/L Microbiology Results 02/20/17 Blood Culture, Received Pending 02/20/17 Blood Culture, Received Pending Diagnostic Radiology SINGLE VIEW CHEST CLINICAL HISTORY: Sepsis. FINDINGS: An AP, portable, upright chest radiograph is compared to study dated 11/02/2016 and correlated with chest CT dated 01/03/2017. The examination is degraded by portable technique and patient rotation. The heart is enlarged and there is atherosclerotic calcification of the thoracic aorta. The pulmonary vasculature is noncongested. Emphysema and chronic interstitial thickening are similar to previous. There are bibasilar opacities. No large pleural effusion or pneumothorax is seen. The skeletal structures are osteopenic. The bony thorax is grossly intact. Surgical clips are seen in the right axilla and projecting over the right breast. IMPRESSION: 1. Cardiomegaly and emphysema. 2. There are bibasilar airspace opacities which likely represent scarring/atelectasis. Correlate clinically for evidence of superimposed pneumonia. CT SCAN OF THE BRAIN WITHOUT IV CONTRAST CLINICAL HISTORY: Generalized weakness. COMPARISON STUDY: CT of the brain dated 11/18/2007. TECHNIQUE: Unenhanced axial CT scan of the brain is performed from the vertex to the skull base. CT DOSE: 614.27 mGy.cm FINDINGS: Brain parenchyma: There are age-related involutional changes noting mild subcortical and periventricular microangiopathic change. There is no hemorrhage, mass effect, or evidence of acute territorial ischemia by CT criteria. Plunkett-white matter is preserved. No extra-axial fluid collection is seen. Ventricles, sulci, cisterns: Prominent secondary to involutional change. Intracranial vasculature: There is atherosclerotic calcification of the cavernous carotid and vertebral arteries. Calvarium: Unremarkable. Sinuses and mastoids: The visualized paranasal sinuses are clear. The mastoid air cells are well pneumatized. Orbits: The bony orbits are grossly intact. There are bilateral ocular lens implants. IMPRESSION: There is no hemorrhage, mass effect, or evidence of acute territorial ischemia by CT criteria. Electronically signed by: Karan Miller M.D. 02/20/2017 6:23 PM Dictated Date/Time: 02/20/2017 6:21 PM The status of this report is Signed. CT ANGIOGRAM OF THE CHEST CLINICAL HISTORY: Nausea. Weakness. COMPARISON STUDY: Chest CT dated 01/03/2017. Chest x-ray dated 02/20/2017. TECHNIQUE: Following the IV administration of 113 cc of Optiray 320, CT angiogram of the chest was performed from the upper abdomen to the thoracic inlet utilizing the pulmonary embolus protocol. Images are reviewed in the axial, sagittal, and coronal planes. 3-D MIPS images are created and assessed. IV contrast was administered without complication. A dose lowering technique was utilized adhering to the principles of ALARA. CT DOSE: 207.71 mGy.cm FINDINGS: Thyroid: Atrophic. Thoracic aorta: There is atherosclerotic calcification of the thoracic aorta, which is normal in caliber and demonstrates standard 3-vessel arch anatomy. No dissection is seen. Pulmonary vasculature: The main pulmonary arteries are mildly dilated suggesting pulmonary artery hypertension. There are no filling defects identified in main, lobar, or segmental pulmonary branches to suggest pulmonary embolus. Heart: The heart is enlarged and without pericardial effusion. Coronary arteries are densely calcified. Lungs and pleural spaces: Evaluation of lung parenchyma is modestly degraded by motion artifact. Emphysema is again noted. There are small pleural effusions with associated bibasilar atelectasis. Foci of linear scarring versus atelectasis are present in the lower lobes. An 8 mm pleural-based nodule is seen in the right lower lobe on image #123. A 7 mm pulmonary nodule seen in the left lower lobe on image #137. These are similar to the 01/03/2017 examination. Mild intralobular septal thickening is suggested. The trachea appears clear. Mediastinum: There are numerous mildly enlarged mediastinal lymph nodes. Prevascular nodes measure up to 1.1 cm in short axis. Precarinal nodes measure up to 1.1 cm in short axis. A subcarinal node measures up to 1.5 cm in short axis. Stefanie: There is hilar adenopathy. Enlarged hilar nodes measure up to 1.6 cm in short axis. Axillae: Surgical clips are noted in the right axilla. There are mildly enlarged left axillary lymph nodes. The largest is seen on image #277, measuring 1.3 x 1.0 cm. These are similar to the 01/03/2017 examination. Upper abdomen: Fluid fills the esophagus to the level of the thoracic inlet. A moderate hiatal hernia is noted. 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 Skeletal structures: No lytic or blastic bony lesions are seen. IMPRESSION: 1. There is no evidence of pulmonary embolus in the main, lobar, or segmental pulmonary arteries. 2. Cardiomegaly and emphysema. Mild intralobular septal thickening is noted and may represent congestive change. Clinical correlation will be required. 3. Small pleural effusions with bibasilar atelectasis. 4. Pulmonary and pleural-based nodules measuring up to 8 mm are pathologically indeterminant and similar to the 01/03/2017 examination. 5. Mildly enlarged mediastinal, hilar, and left axillary lymph nodes are similar to previous. 6. The esophagus is filled with fluid to the level of the thoracic inlet. Note that this may place the patient at risk for aspiration. Electronically signed by: Karan Miller M.D. 02/20/2017 6:32 PM Dictated Date/Time: 02/20/2017 6:24 PM The status of this report is Signed. Draft = Not yet reviewed or approved by Radiologist. EKG Normal sinus rhythm Possible Left atrial enlargement Possible Anterior infarct , age undetermined T wave abnormality, consider lateral ischemia Abnormal ECG When compared with ECG of 26-JUN-2015 15:12, Premature ventricular complexes are no longer Present T wave inversion now evident in Anterolateral leads Vent. rate 87 BPM NV interval 168 ms QRS duration 88 ms QT/QTc 364/438 ms P-R-T axes 70 -6 63 Impression Assessment and Plan (1) Elevated troponin Assessment & Plan: - troponin elevated at 1.350, CKMB noted to be elevated as well - trend cardiac biomarkers x 2 more sets - EKG was reviewed showing possible lateral ischemia with T wave inversion in the anterolateral leads - CXR completed and reviewed - CT chest neg for PE. There are known pulmonary nodules noted, small pleural effusions bilaterally, and esophagus is filled to level of the thoracic inlet. - no anticoagulation at this time, await second set, if continues to rise begin heparinization - possibly demand ischemia with dehydration (2) Weakness (3) Dehydration Assessment & Plan: - Likely secondary to poor oral intake with inability to tolerate Bactrim - Will start on IVFs at 100mL/hr and recheck PRP at 2300 - Imaging reviewed as above - Pulmonology consulted: Dr. Ziegler operations and maintenance supervisor tomorrow Rocephin IV to cover for possible pneumonia s/p bronchoscopy WBC minimally elevated, follow am cbc Lactic acid initially elevated > 3, will recheck now S/p 1 L NSS, continue maintenance fluids (4) Hyperkalemia Assessment & Plan: -IVFs on board, likely secondary to dehydration - Follow PRP (5) Hyponatremia Assessment & Plan: - Na= 120 - Poor Po intake, nausea, vomiting - continue IVFs as above - Recheck PRP at 2300 to monitor sodium correction - IVFs only scheduled to run x 12 hours. (6) HTN (hypertension), benign Assessment & Plan: - BP only in 90s currently Hold norvasc 2.5 mg daily, losartan 100 mg daily - Pt reports normal outpatient readings are in the 120s. - Had nursing at the [facility] check her BP last evening but reports that it was ok at that time, she cannot recall exact readings. (7) Breast CA Assessment & Plan: Diagnosed in 1991 - in remission, s/p XRT (8) CLL (chronic lymphocytic leukemia) Assessment & Plan: Diagnosed 1990 - S/p XRT - Lymph nodes noted from CT chest as above Level of Care Telemetry Advanced Directives Existing Advance Directive: Yes Existing Living Will: Yes Existing Power of Roundsman: Yes Existing Health Care Proxy: Yes Resuscitation Status DO NOT RESUSCITATE VTE Prophylaxis Given or contraindicated: Enoxaparin (Lovenox)SQ, T.E.D. Stockings, SCD's Problem Qualifiers (1) Breast CA: Patient sex: female Laterality: right
[2017-02-20 18:17] LABS: BASO % 0.2 %; BASO ABS # 0.03 K/uL (0-0.2); COMPLETE YES; ECHINOCYTES 1+; IG% 0.9 %; LYMPH % 45.2 %; LYMPH ABS # 5.68 K/uL (1.2-3.4); MONO % 1.4 %; NEUT % 52.3 %; SMUDGE CELLS PRESENT
--- NOTE | 2017-02-20 18:25 | DIAGNOSTIC IMAGING REPORT ---
CT SCAN OF THE BRAIN WITHOUT IV CONTRAST CLINICAL HISTORY: Generalized weakness. COMPARISON STUDY: CT of the brain dated 11/18/2007. TECHNIQUE: Unenhanced axial CT scan of the brain is performed from the vertex to the skull base. CT DOSE: 614.27 mGy.cm FINDINGS: Brain parenchyma: There are age-related involutional changes noting mild subcortical and periventricular microangiopathic change. There is no hemorrhage, mass effect, or evidence of acute territorial ischemia by CT criteria. Plunkett-white matter is preserved. No extra-axial fluid collection is seen. Ventricles, sulci, cisterns: Prominent secondary to involutional change. Intracranial vasculature: There is atherosclerotic calcification of the cavernous carotid and vertebral arteries. Calvarium: Unremarkable. Sinuses and mastoids: The visualized paranasal sinuses are clear. The mastoid air cells are well pneumatized. Orbits: The bony orbits are grossly intact. There are bilateral ocular lens implants. IMPRESSION: There is no hemorrhage, mass effect, or evidence of acute territorial ischemia by CT criteria. Electronically signed by: Karan Miller M.D. 02/20/2017 6:23 PM Dictated Date/Time: 02/20/2017 6:21 PM
--- NOTE | 2017-02-20 18:34 | DIAGNOSTIC IMAGING REPORT ---
ADDENDUM ADDENDUM: In addition to the above findings there is mild circumferential wall thickening identified in the distal esophagus. This has represents a change from 01/03/2017. Correlate clinically for evidence of esophagitis. There is no associated pneumomediastinum or inflammation surrounding the esophagus. Electronically signed by: Karan Miller M.D. 02/21/2017 3:59 PM Dictated Date/Time: 02/21/2017 3:[address] ANGIOGRAM OF THE CHEST CLINICAL HISTORY: Nausea. Weakness. COMPARISON STUDY: Chest CT dated 01/03/2017. Chest x-ray dated 02/20/2017. TECHNIQUE: Following the IV administration of 113 cc of Optiray 320, CT angiogram of the chest was performed from the upper abdomen to the thoracic inlet utilizing the pulmonary embolus protocol. Images are reviewed in the axial, sagittal, and coronal planes. 3-D MIPS images are created and assessed. IV contrast was administered without complication. A dose lowering technique was utilized adhering to the principles of ALARA. CT DOSE: 207.71 mGy.cm FINDINGS: Thyroid: Atrophic. Thoracic aorta: There is atherosclerotic calcification of the thoracic aorta, which is normal in caliber and demonstrates standard 3-vessel arch anatomy. No dissection is seen. Pulmonary vasculature: The main pulmonary arteries are mildly dilated suggesting pulmonary artery hypertension. There are no filling defects identified in main, lobar, or segmental pulmonary branches to suggest pulmonary embolus. Heart: The heart is enlarged and without pericardial effusion. Coronary arteries are densely calcified. Lungs and pleural spaces: Evaluation of lung parenchyma is modestly degraded by motion artifact. Emphysema is again noted. There are small pleural effusions with associated bibasilar atelectasis. Foci of linear scarring versus atelectasis are present in the lower lobes. An 8 mm pleural-based nodule is seen in the right lower lobe on image #123. A 7 mm pulmonary nodule seen in the left lower lobe on image #137. These are similar to the 01/03/2017 examination. Mild intralobular septal thickening is suggested. The trachea appears clear. Mediastinum: There are numerous mildly enlarged mediastinal lymph nodes. Prevascular nodes measure up to 1.1 cm in short axis. Precarinal nodes measure up to 1.1 cm in short axis. A subcarinal node measures up to 1.5 cm in short axis. Stefanie: There is hilar adenopathy. Enlarged hilar nodes measure up to 1.6 cm in short axis. Axillae: Surgical clips are noted in the right axilla. There are mildly enlarged left axillary lymph nodes. The largest is seen on image #277, measuring 1.3 x 1.0 cm. These are similar to the 01/03/2017 examination. Upper abdomen: Fluid fills the esophagus to the level of the thoracic inlet. A moderate hiatal hernia is noted. 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 Skeletal structures: No lytic or blastic bony lesions are seen. IMPRESSION: 1. There is no evidence of pulmonary embolus in the main, lobar, or segmental pulmonary arteries. 2. Cardiomegaly and emphysema. Mild intralobular septal thickening is noted and may represent congestive change. Clinical correlation will be required. 3. Small pleural effusions with bibasilar atelectasis. 4. Pulmonary and pleural-based nodules measuring up to 8 mm are pathologically indeterminant and similar to the 01/03/2017 examination. 5. Mildly enlarged mediastinal, hilar, and left axillary lymph nodes are similar to previous. 6. The esophagus is filled with fluid to the level of the thoracic inlet. Note that this may place the patient at risk for aspiration. Electronically signed by: Karan Miller M.D. 02/20/2017 6:32 PM Dictated Date/Time: 02/20/2017 6:24 PM
[2017-02-20] MEDS ORDERED: ACETAMINOPHEN 325 MG TAB PO PRN (19:00)
[2017-02-20] MEDS ORDERED: ONDANSETRON INJ 2 MG/ML 2 ML VIAL IV PRN (19:00)
[2017-02-20] MEDS ORDERED: LORAZEPAM 1 MG TAB PO PRN (19:00)
[2017-02-20] MEDS ORDERED: POLYETHYLENE (MIRALAX) 17 GM PACK PO PRN (19:00)
[2017-02-20] MEDS ORDERED: FLUOCINOLONE ACETONIDE OTB SCH (19:00)
[2017-02-20] MEDS ORDERED: LOSA1TAB38 PO (19:05)
[2017-02-20] MEDS ORDERED: AMLO2.5T PO (19:05)
[2017-02-20] MEDS ORDERED: PYRI100T4 PO (19:14)
[2017-02-20] MEDS ORDERED: VITA1TAB4 PO (19:14)
[2017-02-20 20:35] VITALS: BP 109/67; PULSE 87; TEMP 36.8; O2SAT 98; Ht 162.6 cm; Wt 61.0 kg
[2017-02-20 20:48] LABS: URINE APPEARANCE CLEAR (CLEAR); URINE BILIRUBIN NEG (NEG); URINE COLOR YELLOW; URINE NITRITE NEG (NEG); URINE PH 6.5 (4.5-7.5); URINE SPECIFIC GRAVITY > 1.045 (1.000-1.030); UROBILINOGEN NEG (NEG); ZZUR CULT IF INDIC CLEAN CATCH NO
[2017-02-20 20:49] LABS: MANUAL MICROSCOPIC REQUIRED? NO; REVIEW REQ? NO
[2017-02-20] MEDS: SODIUM CHLORIDE 0.9% 1000ML 1,000 ML IV SCH (21:05)
[2017-02-20] MEDS: CEFTRIAXONE SOD INJ 1 GM in DEXTROSE 5% ADD-VANTAGE 50ML 50 ML IV SCH (21:14)
[2017-02-20] MEDS: MAGNESIUM OXIDE 400 MG TAB PO SCH (21:15)
[2017-02-20] MEDS: BIMATOPROST 0.01% OP SOLN 2.5 ML BTL OP SCH (21:15)
[2017-02-20] MEDS ORDERED: LORAZEPAM 0.5 MG TAB PO PRN (23:00)
[2017-02-20] MEDS ORDERED: NURSING VERBAL MED ORDER ONE (23:00)
[2017-02-20 23:44] LABS: BUN/CREATININE RATIO 30.8 (10-20); CALCIUM 7.6 mg/dl (8.5-10.1); CREATININE 0.61 mg/dl (0.60-1.20)
[2017-02-20 23:59] VITALS: BP 95/61; PULSE 82; TEMP 36.3; O2SAT 96
[2017-02-21] VITALS (12 sets, daily range): BP systolic 92–110; BP diastolic 54–66; PULSE 76–125; TEMP 36.4–36.9; O2SAT 94–99
[2017-02-21] MEDS: LEVOTHYROXINE 75 MCG TAB PO SCH (06:21)
--- NOTE | 2017-02-21 06:53 | Family Medicine Progress Note ---
Progress Note Date of Service Feb 21, 2017. Subjective Pt evaluation today including: conversation w/ patient, physical exam, chart review, lab review Patient was seen and examined at bedside. Telemetry showed sinus rhythm in the 70s and 80s. I got a call from the Telemetry nurse stating that the patient had gone into Afib in the 130s. Patient reports that she continues to feel fatigued. She has been vomiting a bit this AM. She has a vomit bin by her side. She was able to make minimal progress on her breakfast. She confirms that she has been unable to eat or drink much. Family and friend were present at bedside. Plan of care was described to the patient. Constitutional: No fever, No chills, No sweats Respiratory: + cough, + shortness of breath, No sputum, No wheezing Cardiovascular: No chest pain Abdomen: + nausea, + vomiting, No pain, No diarrhea Musculoskeletal: No joint pain Skin: No rash Objective Physical Exam General Appearance: WD/WN, + pertinent finding (appears unwell and fatigued) Eyes: PERRL, EOMI Neck: supple Respiratory/Chest: chest non-tender, lungs clear, normal breath sounds, no respiratory distress, no accessory muscle use Cardiovascular: regular rate, rhythm, no edema, no gallop, no JVD, no murmur Abdomen: normal bowel sounds, non tender, soft, no organomegaly Extremities: normal range of motion, non-tender, normal inspection, no pedal edema, no calf tenderness Neurologic/Psychiatric: 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 Coli p/w weakness x several weeks. CTA was negative. Trops were found to be 1.35. She was admitted for serial troponins, an echocardiogram, IV Rocephin for a failed outpatient course of Bactrim for her E. Coli findings. Pulmonology (Dr. Ziegler) was consulted and took the patient for emergent thoracocentesis for Boerhave's syndrome based on clinical history and CT Scan findings. PH of the pleural fluid was 7.43 (less likely an esophageal perforation). GI was consulted for esophageal thickening. On 02/21/2017 patient's rhythm converted into A.Fib. New Onset Afib -Will will consider AC after a discussion with the patient. We also want to make sure there won't be any surgical interventions. -to start b pavithra. - Echo with low EF. Pleural effusion - CT chest neg for PE. There are known pulmonary nodules noted, small pleural effusions bilaterally, and esophagus is filled to level of the thoracic inlet. - s/p Thoracocentesis - pH was 7.43. No concern of esophageal fluid leak. - Effusion likely sec to CHF due to a fib Mild Troponin elevation - ? sec to Type 2 NSTEMI - Troponin elevated at 1.350-->1.00 -->0.7 - EKG was reviewed showing possible lateral ischemia with T wave inversion in the anterolateral leads - Demand ischemia likely sec to A fib. Must be going into a fib off and on before admission. Follow. - Echo showed Left ventricular systolic function is moderately reduced. Ejection fraction = 40%. Moderate to large area of akinesis involving the mid and distal anterior wall , adjacent anteroseptum, and the entire apex. There is mild mitral regurgitation. There is mild to moderate tricuspid regurgitation. - Continue aspirin. B pavithra added for a fib. Not on statin - will discuss with cardiology. Hyponatremia likely sec to CHF, ? dehydration from poor oral intake CTA indicated congestive change. Na= 120 -->123-->124 BNP was 16,000 Echocardiogram showed EF of 40%. Consider Cardiology Consult. E. Coli Positive Bronchial Washings done as outpatient - Unable to tolerate Bactrim. - Will broaden coverage per Dr. Ziegler's suggestion to Clindamycin. Day # 1. (will confirm if we want Zosyn or Clinda) - Blood Cultures Pending. HTN (hypertension), benign BP is low, 100/66 Will hold norvasc 2.5 mg daily, losartan 100 mg daily c/w ASA daily. Hyperkalemia -IVFs on board, likely secondary to dehydration -K+ was 5.2-->5.0-->5.2 h/o Breast CA & CLL In remission per patient. Hypothyroid Continue Synthroid. Consider checking TSH. Diet Clear Liquid Diet until GI recs. DVT Proph Lovenox 40 QAM Dispo: Lives at the [place] and PCP is Dr. Chavez. FULL CODE Resident Involvement: Resident Care Provided Care Provided: Adult [facility] Medicine Reviewed: Pt Seen/Exam by Me History feeling nauseous and having dry heave Constitutional: denies: fever Respiratory: negative: short of breath Cardiovascular: denies chest pain General Appearance: no apparent distress (dry heaving during visit) Respiratory: no respiratory distress, crackles (base left) Cardiovascular: irregularly irregular Gastrointestinal: soft Neurologic/Psychiatric: alert, oriented x 3 Skin Characteristics: warm/dry Assessment/Plan Resident Physician Supervision Note: I independently interviewed and examined the patient and verified the espitia history and physical, reviewed labs and image studies, discussed the case with the resident Dr. Stevens and agree with the findings and care plan.
[2017-02-21] MEDS: SODIUM CHLORIDE 0.9% 1000ML 1,000 ML IV SCH ×2 (07:43→17:22)
[2017-02-21] MEDS: PANTOprazole SOD 40 MG TAB PO SCH (07:45)
[2017-02-21] MEDS: ENOXAPARIN 40 MG/0.4 ML SYR SQ SCH (07:45)
[2017-02-21] MEDS: MAGNESIUM OXIDE 400 MG TAB PO SCH ×2 (07:45→20:54)
[2017-02-21] MEDS: CALCIUM 600MG + VIT D 400 IU TAB PO SCH (07:45)
[2017-02-21] MEDS: ASPIRIN 81 MG ECTAB PO SCH (07:45)
[2017-02-21] MEDS: MULTIVITAMIN TAB PO SCH (07:45)
[2017-02-21] MEDS: PSYLLIUM 58.6% PWD PACK S\\F PO SCH (07:45)
[2017-02-21] MEDS: DORZOLAMIDE/TIMOLOL 22.3/6.8MG/ML 10 ML BTL OP SCH (07:46)
[2017-02-21 07:54] LABS: HEMATOCRIT 32.6 % (37-47); MEAN CELL VOLUME 83.6 fL (80-100); MEAN CORPUSCULAR HEMOGLOBIN 28.5 pg (25-34); MEAN PLATELET VOLUME 9.7 fL (7.4-10.4); PLATELET COUNT 193 K/uL (130-400); WHITE BLOOD COUNT 11.36 K/uL (4.8-10.8)
[2017-02-21 08:20] LABS: CALCIUM 7.4 mg/dl (8.5-10.1); CREATININE 0.55 mg/dl (0.60-1.20)
[2017-02-21 08:24] LABS: CHOLESTEROL/HDL RATIO 4.5
[2017-02-21 08:46] LABS: BASO % 0.1 %; BASO ABS # 0.01 K/uL (0-0.2); COMPLETE YES; EOS % 0.2 %; IG% 0.4 %; LYMPH % 52.2 %; LYMPH ABS # 5.93 K/uL (1.2-3.4); MONO % 2.8 %; NEUT % 44.3 %
--- NOTE | 2017-02-21 11:05 | Pulmonary Consultation ---
History General Date of Service: Feb 21, 2017. Stated Complaint: Dehydration, Hyperkalemia, new onset atrial fibrillation, pleural effusion, retching and vomiting HPI The patient is a 89 year old female who presents to [facility] with complaints of Dehydration, Hyperkalemia. The patient's primary care provider is Myrna Chavez M.D.. Patient was seen by provider Nessa Frnacis from the Pulmonary Department on 01/2017. She was noted to have general malacia, nausea/vomiting and overall poor intake with and was instructed to present to the emergency room department. The signs and symptoms were noted to initiate prior to bronchoscopy performed 02/08/2017. That bronchoscopy with BAL is performed of the right middle lobe and left lower lobe grew out pansensitive Escherichia coli. With this the patient was initiated on Bactrim and did note bilateral thigh rash after initiation of Bactrim. She did contact the office and she was informed to discontinue the Bactrim. Her nausea and vomiting actually increased after discontinuation of Bactrim. Patient has been experiencing respiratory signs and symptoms consistent with chronic bronchiectasis since December 2015. Her cough does notably improved status post antibiotics but never completely resolves even with aggressive treatment of GERD, chronic rhinitis and discontinuation of lisinopril. She does note cough occurs 1 of 3 times for day and is associated with tickling in her throat. At this time she is still producing green sputum. I should note on the antibiotic/Bactrim patient's cough did improve dramatically. She currently denies: Dyspnea, PMHx includes: GERD, hypertension, CLL, breast CA, LLL 5mm pulmonary nodule, and glaucoma. She is a life-long non-smoker with second hand exposure through her late . No occupational exposures. Current Workup: EKG: NSR, rate=87, (new) T wave inversion anterior lateral leads (compared to 06/26/15) WBC: 13K ESR: =14 Troponin: 1.3501.030--.0831 Current Pulmonary Medications: 1. Ceftriaxone 1 gram Q 24 IV Microbiology Bronchial washing 02/08/2017: (RML) Pansensitive Escherichia coli Bronchial washing 02/08/2017: (LLL) Pansensitive Escherichia coli Pulmonary function tests 12/16/2016 FEV1/FVC: 87 FEV1: 0.76/42 % FVC: 0.87/33 % T.00/96 % RV/TLC: > 65 DLCO: 54 DLCO/VA: 91 Bronchodilator: Significant response based off FVC standards PmHx: 1. Bronchiectasis 2. Chronic lymphocytic leukemia 3. Hearing loss 4. Hoarseness 5. Hypertension 6. Impacted cerumen of both ears 7. Interstitial lung disease 8. Laryngopharyngeal reflux 9. 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 Breast Surgery Lumpectomy 2. Tonsillectomy With Adenoidectomy Family History 1. Congestive Heart Failure 2. Stroke Syndrome Social History Alcohol Use (History) Never smoker Denied: History of Smoking Cigarettes Current Meds 1. Sulfamethoxazole-Trimethoprim 800-160 MG Oral Tablet; TAKE 1 TABLET BID 2. AmLODIPine Besylate 2.5 MG Oral Tablet; TAKE 1 TABLET DAILY DIRECTED 3. Aspir-81 81 MG Oral Tablet Delayed Release; TAKE 1 TABLET DAILY 4. B-6 250 MG Oral Tablet; TAKE 1 TABLET DAILY DIRECTED 5. Caltrate 600 TABS 6. Fish Oil 1000 MG Oral Capsule 7. Levothyroxine Sodium 75 MCG Oral Tablet 8. Losartan Potassium 100 MG Oral Tablet; TAKE 1 TABLET DAILY 9. Lumigan SOLN 10. Magnesium 500 MG Oral Capsule; TAKE DIRECTED 11. Metamucil POWD 12. Multi-Day Vitamins TABS 13. Vitamin D 1000 UNIT Oral Tablet; TAKE 1 TABLET DAILY 14. Vitamin E 100 UNIT Oral Capsule Historian: patient, family, EMS Onset: other (past 2 weeks) Severity: moderate Review of Systems Constitutional: reports: malaise, weakness Eyes: reports: no symptoms ENT: reports: no symptoms Cardiovascular: reports: no symptoms Respiratory: reports: no symptoms Gastrointestinal: reports: as stated in HPI Genitourinary - Female: reports: no symptoms Musculoskeletal: reports: no symptoms Integumentary: reports: no symptoms Neurologic: reports: no symptoms Psychiatric: reports: no symptoms Endocrine: no symptoms Hematologic / Lymphatic: no symptoms Allergic / Immunologic: no symptoms Past Medical History Past Medical History: Please see history of present illness Past Surgical History: Please see history of present illness Family History FH: hypertension FH: kidney disease FHx: heart disease Kidney stone Please see history of present illness Social History Please see history of present illness Smoking Status: Never Smoker Marital status: Occupational Status: unemployed History of MDRO History of MDRO: No Allergies Coded Allergies: Cefaclor (Verified Allergy, Unknown, RASH, 12/11/17) Dorzolamide (Verified Allergy, Unknown, SWELLING OF EYES, 02/20/17) CANT USE THE ONE WITH THE PRESERVATIVES. CAN USE PRESERVATIVE FREE Timolol (Verified Allergy, Unknown, SWELLING OF EYES, 02/20/17) CANT USE THE ONE WITH THE PRESERVATIVES. CAN USE PRESERVATIVE FREE Current Medications Reported Home Medications Medications Dose Route/Sig Max Daily Dose Days Date Category Vitamin E 400 Unit Tab 800 Mg PO DAILY 02/20/17 Reported Vitamin B6 (Pyridoxine HCl) 100 Mg Tab 100 Mg PO DAILY 02/20/17 Reported Cozaar (Losartan Potassium) 100 Mg Tab 100 Mg PO QAM 30 02/20/17 Reported Norvasc (Amlodipine Besylate) 2.5 Mg Tab 2.5 Mg PO DAILY 02/20/17 Reported Lorazepam 1 Mg Tab 1 Mg PO DAILY PRN 06/26/15 Reported Lumigan (Bimatoprost) 0.01 % Mary 1 Drops OP HS 30 06/26/15 Reported Metamucil Powder (Psyllium Hydrophilic Mucilloid) Powd 1 Pack PO DAILY 06/26/15 Reported Magnesium 250 mg (Magnesium) 1 Tab Tab 500 Mg PO DAILY 06/26/15 Reported [place]-3 (Fish Oil) 1 Ea Cap 1 Cap PO DAILY 06/26/15 Reported Multivitamin (Multivitamins) Tab 1 Tab PO DAILY 06/26/15 Reported Os-Gil 500 Plus D (Calcium/Vitamin D) Tab 1 Tab PO BID 06/26/15 Reported Ecotrin Or Generic * (Aspirin) 81 Mg Ectab 81 Mg PO DAILY 11/18/07 Reported Synthroid * (Levothyroxine Sodium) 0.075 Mg Tab 0.075 Mg PO DAILY 11/18/07 Reported Physical Physical Exam Vital Signs: Date Time Temp Pulse Resp B/P (MAP) Pulse Ox O2 Delivery O2 Flow Rate FiO2 02/21/17 08:00 98 Nasal Cannula 2.0 02/21/17 04:00 99 Nasal Cannula 2.0 02/21/17 03:51 36.9 76 17 104/66 (79) 99 Nasal Cannula 2.0 02/21/17 00:01 98 Nasal Cannula 2.0 02/20/17 23:59 36.3 82 21 95/61 (72) 96 Nasal Cannula 2.0 02/20/17 20:35 36.8 87 20 109/67 98 Room Air 02/20/17 19:57 88 18 105/55 95 02/20/17 19:11 92 02/20/17 19:08 94 20 99/57 94 Room Air 02/20/17 18:00 76 18 95/58 98 Room Air 02/20/17 16:58 96 Room Air 02/20/17 16:07 36.3 95 18 80/50 98 Room Air General Appearance: moderate distress Head: NORMOCEPHALIC, ATRAUMATIC Eyes: PERRLA, NO DISCHARGE, EOMI, SCLERAE NORMAL ENT: NORMAL EAR EXAM, NORMAL NASAL EXAM, NORMAL MOUTH EXAM, NORMAL THROAT EXAM Neck: NORMAL RANGE OF MOTION, NO TENDERNESS, TRACHEA MIDLINE Respiratory: other (clear to auscultation bilaterally but ultrasound shows small loculated right-sided pleural effusion with small non-loculated left-sided ) Cardiovasular: REGULAR RATE/RHYTHM, NORMAL S1S2, irregular rate Abdomen: NON TENDER, NORMAL BOWEL SOUNDS, NO REBOUND, NO MASSES, NO GUARDING Genitourinary - Female: EXTERNAL GENITALIA NORMAL Back: NORMAL INSPECTION, NO MIDLINE TENDERNESS, NO CVA TENDERNESS, NO PARAVERTEBRAL TTP Upper Extremities: NO EDEMA, NO DEFORMITY, NORMAL ROM Lower Extremities: NO EDEMA, NO DEFORMITY, NORMAL ROM Pulses: carotid (R) (2+), carotid (L) (2+), posterior tibial (R), posterior tibial (L) (2+) Neuro: ALERT, ORIENTED x 3, NORMAL MOTOR EXAM, NORMAL SENSATION, NORMAL CEREBELLAR EXAM Reflexes: biceps (R) (2+), bicpes (L) (2+), achilles (R) (2+), achilles (L) (2+ ) Babinski Testing: right (downgoing), left (downgoing) Psychiatric: NORMAL AFFECT, NO SUICIDAL IDEATION Diagnostics Labs Results Past 24 Hours Test 02/20/17 16:35 02/20/17 16:48 02/20/17 19:52 02/20/17 20:30 Range/Units White Blood Count 12.58 4.8-10.8 K/uL Red Blood Count 4.39 4.2-5.4 M/uL Hemoglobin 12.8 12.0-16.0 g/dL Hematocrit 36.8 37-47 % Mean Corpuscular Volume 83.8 80-100 fL Mean Corpuscular Hemoglobin 29.2 25-34 pg Mean Corpuscular Hemoglobin Concent 34.8 32-36 g/dl Platelet Count 230 130-400 K/uL Mean Platelet Volume 9.6 7.4-10.4 fL Neutrophils (%) (Auto) 52.3 % Lymphocytes (%) (Auto) 45.2 % Monocytes (%) (Auto) 1.4 % Eosinophils (%) (Auto) 0.0 % Basophils (%) (Auto) 0.2 % Neutrophils # (Auto) 6.58 1.4-6.5 K/uL Lymphocytes # (Auto) 5.68 1.2-3.4 K/uL Monocytes # (Auto) 0.18 0.11-0.59 K/uL Eosinophils # (Auto) 0.00 0-0.5 K/uL Basophils # (Auto) 0.03 0-0.2 K/uL RDW Standard Deviation 49.3 36.4-46.3 fL RDW Coefficient of Variation 16.2 11.5-14.5 % Immature Granulocyte % (Auto) 0.9 % Immature Granulocyte # (Auto) 0.11 0.00-0.02 K/uL Smudge Cells PRESENT Echinocytes 1+ Erythrocyte Sedimentation Rate 14 0-21 mm/hr Prothrombin Time 10.2 9.0-12.0 SECONDS Prothromb Time International Ratio 1.0 0.9-1.1 Activated Partial Thromboplast Time 27.0 21.0-31.0 SECONDS Partial Thromboplastin Ratio 1.0 Sodium Level 120 136-145 mmol/L Potassium Level 5.2 3.5-5.1 mmol/L Chloride Level 89 98-107 mmol/L Carbon Dioxide Level 24 21-32 mmol/L Anion Gap 7.0 3-11 mmol/L Blood Urea Nitrogen 22 7-18 mg/dl Creatinine 0.93 0.60-1.20 mg/dl Est Creatinine Clear Calc Drug Dose 36.9 ml/min Estimated GFR () 63.2 Estimated GFR (Non- 54.5 BUN/Creatinine Ratio 23.2 10-20 Random Glucose 127 70-99 mg/dl Osmolality 265 280-300 mOsm/kg Calcium Level 8.9 8.5-10.1 mg/dl Phosphorus Level 2.4 2.5-4.9 mg/dl Magnesium Level 2.4 1.8-2.4 mg/dl Total Bilirubin 0.3 0.2-1 mg/dl Aspartate Amino Transf (AST/SGOT) 28 15-37 U/L Alanine Aminotransferase (ALT/SGPT) 28 12-78 U/L Alkaline Phosphatase 62 45-117 U/L Total Creatine Kinase 64 26-192 U/L Creatine Kinase MB 10.4 0.5-3.6 ng/ml Creatine Kinase MB Ratio 16.3 0-3.0 Troponin I 1.350 0-0.045 ng/ml C-Reactive Protein 4.44 0-0.29 mg/dl Total Protein 5.9 6.4-8.2 gm/dl Albumin 2.9 3.4-5.0 gm/dl Globulin 3.0 2.5-4.0 gm/dl Albumin/Globulin Ratio 1.0 0.9-2 Lipase 175 73-393 U/L Random Cortisol 35.80 mcg/dl Bedside Lactic Acid Venous 3.54 0.90-1.70 mmol/L Lactic Acid Level 1.9 0.4-2.0 mmol/L Urine Color YELLOW Urine Appearance CLEAR CLEAR Urine pH 6.5 4.5-7.5 Urine Specific [place] > 1.045 1.000-1.030 Urine Protein NEG NEG Urine Glucose (UA) NEG NEG Urine Ketones NEG NEG Urine Occult Blood NEG NEG Urine Nitrite NEG NEG Urine Bilirubin NEG NEG Urine Urobilinogen NEG NEG Urine Leukocyte Esterase NEG NEG Urine WBC (Auto) 1-5 0-5 /hpf Urine RBC (Auto) 5-10 0-4 /hpf Urine Hyaline Casts (Auto) 1-5 0-5 /lpf Urine Epithelial Cells (Auto) 10-20 0-5 /lpf Urine Bacteria (Auto) NEG NEG Urine Osmolality 596 500-800 mOms/kg Test 02/20/17 22:45 02/21/17 02:32 02/21/17 07:29 Range/Units Sodium Level 123 124 136-145 mmol/L Potassium Level 5.0 5.0 3.5-5.1 mmol/L Chloride Level 93 95 98-107 mmol/L Carbon Dioxide Level 24 22 21-32 mmol/L Anion Gap 6.0 7.0 3-11 mmol/L Blood Urea Nitrogen 19 19 7-18 mg/dl Creatinine 0.61 0.55 0.60-1.20 mg/dl Est Creatinine Clear Calc Drug Dose 54.0 59.9 ml/min Estimated GFR () 93.2 96.4 Estimated GFR (Non- 80.4 83.2 BUN/Creatinine Ratio 30.8 35.0 10-20 Random Glucose 119 95 70-99 mg/dl Calcium Level 7.6 7.4 8.5-10.1 mg/dl Troponin I 1.030 0.831 0-0.045 ng/ml Bedside Glucose 128 70-90 mg/dl White Blood Count 11.36 4.8-10.8 K/uL Red Blood Count 3.90 4.2-5.4 M/uL Hemoglobin 11.1 12.0-16.0 g/dL Hematocrit 32.6 37-47 % Mean Corpuscular Volume 83.6 80-100 fL Mean Corpuscular Hemoglobin 28.5 25-34 pg Mean Corpuscular Hemoglobin Concent 34.0 32-36 g/dl Platelet Count 193 130-400 K/uL Mean Platelet Volume 9.7 7.4-10.4 fL Neutrophils (%) (Auto) 44.3 % Lymphocytes (%) (Auto) 52.2 % Monocytes (%) (Auto) 2.8 % Eosinophils (%) (Auto) 0.2 % Basophils (%) (Auto) 0.1 % Neutrophils # (Auto) 5.03 1.4-6.5 K/uL Lymphocytes # (Auto) 5.93 1.2-3.4 K/uL Monocytes # (Auto) 0.32 0.11-0.59 K/uL Eosinophils # (Auto) 0.02 0-0.5 K/uL Basophils # (Auto) 0.01 0-0.2 K/uL RDW Standard Deviation 49.3 36.4-46.3 fL RDW Coefficient of Variation 16.2 11.5-14.5 % Immature Granulocyte % (Auto) 0.4 % Immature Granulocyte # (Auto) 0.05 0.00-0.02 K/uL Pro-B-Type Natriuretic Peptide 83407 0-1800 pg/ml Triglycerides Level 158 0-150 mg/dl Cholesterol Level 134 0-200 mg/dl HDL Cholesterol 30 mg/dl LDL Cholesterol, Calculated 72 mg/dl VLDL Cholesterol, Calculated 32 mg/dl Cholesterol/HDL Ratio 4.5 Microbiology Results 02/20/17 Blood Culture, Received Pending 02/20/17 Blood Culture, Received Pending Diagnostic Radiology Please see history of present illness EKG Please refer to history of present illness Impression Assessment and Plan 89-year-old female admitted with 2 weeks of nausea vomiting and new onset pleural effusion: #1 Pleural Effusion: Patient's nausea vomiting and fatigue is associated with change in her esophagus and new onset pleural effusion as compared to previous CT performed 01/03/2017. This time I believe an emergent evaluation for possible Boerhaave's type syndrome with associated pleural effusion is required. . the patient and family about this and they're agreeable to right- sided thoracentesis. Please refer to thoracentesis note. Also believe GI should be counseled. At this time night informed primary care team. I should also note patient grew out pansensitive Escherichia coli from previous bronchoscopy which tends to be urine and/or GI in origin. We'll also consult thoracic surgery if pH is notably low. #2 Antibiotics:Patient's antibiotics currently being treated with ceftriaxone for possible pulmonary origin. We'll initiate Zosyn for anaerobic coverage and discontinue ceftriaxone at this time. We'll reevaluate and change antibiotics as necessary. #3 Bronchiectasis: Patient does have a history of bronchiectasis recent bronchoscopy performed 02/08/2017 does show pansensitive Escherichia coli. Patient was treated with Bactrim and should be covered at this time. Clinically she noted improvement in her cough with treatment. #4 Cardiac: Patient now notably in atrial fibrillation via telemetry and patient was notably elevated troponins on admission and normal BUN/creatinine. Would initiate consultation with cardiology and will speak to primary care team.
--- NOTE | 2017-02-21 11:06 | Procedure Note ---
Procedure Note Date of Service Feb 21, 2017. Procedure Note Procedures: Right sided Thoracentesis Consent: obtained via the patient and placed into the chart Pre-Procedural Dx: Loculated pleural effusion possibly associated with Boerhaave 's syndrome Post-Procedural Dx: Loculated pleural effusion possibly associated with Boerhaave's syndrome Analgesia: 8cc of 1% Liquid Lidocaine Procedure: The patient was placed in an upright position and thoracic US was used to select a spot for the procedure. A spot along the posterior axillary line was marked in the 7th intercostal space. The patient was then draped and prepped in a sterile fashion. A modified Seldinger technique was then used for catheter placement. Flowing this approximately 10cc of clear pleural fluid was removed. The patient was then cleaned and placed at a 60 degree angle in the bed were the US was used to evaluate for possible pneumothorax. The US showed good lung sliding and starry night sign. EBL: None Complications: Notable aspiration of air using small gauge needle. Chest x-ray pending
--- NOTE | 2017-02-21 11:27 | DIAGNOSTIC IMAGING REPORT ---
CHEST ONE VIEW PORTABLE CLINICAL HISTORY: S/P Thoracentesis COMPARISON STUDY: 04/23/2016 FINDINGS: The cardiac and mediastinal contours remain stable. Surgical clips project in the right breast and right axillary region. There are small bilateral pleural effusions. There are associated bibasilar opacities likely atelectatic. The chest has an emphysematous configuration. There is no evidence of pneumothorax.[ IMPRESSION: 1. Small bilateral pleural effusions and bibasilar opacities likely atelectatic 2. No evidence of pneumothorax Electronically signed by: Nii Blount M.D. 02/21/2017 11:26 AM Dictated Date/Time: 02/21/2017 11:25 AM
[2017-02-21] MEDS: CLINDAMYCIN IV 600 MG in DEXTROSE 5% 50ML 50 ML IV SCH ×2 (12:01→20:50)
--- NOTE | 2017-02-21 12:04 | Clinical Documentation Query ---
Dr. MCMILLAN, FIDE : CLINICAL DOCUMENTATION QUERY Patient is an 89 year old female admitted for evaluation of weakness, dehydration, and elevated troponin. CK-MB, CK/CK-MB fraction and troponin I elevated on admission. EKG demonstrated possible lateral ischemia. Anticoagulation not provided pending thoracentesis. Echocardiogram pending. In your clinical opinion is this patient being managed for: ( x ) Type II NSTEMI ( ) Not Agree ( ) Other explanation of clinical findings (Please Explain) ( ) Unable to determine (Please Define) ( ) Need to Discuss The medical record reflects the following clinical findings, treatment, and risk factors. Clinical Indicators: As above; serum troponin >25X the upper limit of normal. Treatment: Serial cardiac enzymes, echocardiogram, recommendation by pulmonary to consult cardiology Risk Factors: Age, pneumonia, dehydration, pleural effusion Please clarify and document your clinical opinion in the progress notes and discharge summary. Terms such as "probable", "suspected", "likely", "questionable", "possible", or "still to be ruled out" are acceptable. IF IN AGREEMENT, YOU MUST DOCUMENT ABOVE DIAGNOSTIC STATEMENT IN DAILY PROGRESS NOTES AND DISCHARGE SUMMARY. This document is not part of the patient's record. Thank You, Bonifacio Frye, MARIO [phone]
--- NOTE | 2017-02-21 12:04 | Clinical Documentation Query ---
Dr. NAVARRO [facility] : CLINICAL DOCUMENTATION QUERY Patient is an 89 year old female admitted for evaluation of weakness, dehydration, and elevated troponin. CK-MB, CK/CK-MB fraction and troponin I elevated on admission. EKG demonstrated possible lateral ischemia. Anticoagulation not provided pending thoracentesis. Echocardiogram pending. In your clinical opinion is this patient being managed for: (x ) Type II NSTEMI ( ) Not Agree ( ) Other explanation of clinical findings (Please Explain) ( ) Unable to determine (Please Define) ( ) Need to Discuss The medical record reflects the following clinical findings, treatment, and risk factors. Clinical Indicators: As above; serum troponin >25X the upper limit of normal. Treatment: Serial cardiac enzymes, echocardiogram, recommendation by pulmonary to consult cardiology Risk Factors: Age, pneumonia, dehydration, pleural effusion Please clarify and document your clinical opinion in the progress notes and discharge summary. Terms such as "probable", "suspected", "likely", "questionable", "possible", or "still to be ruled out" are acceptable. IF IN AGREEMENT, YOU MUST DOCUMENT ABOVE DIAGNOSTIC STATEMENT IN DAILY PROGRESS NOTES AND DISCHARGE SUMMARY. This document is not part of the patient's record. Thank You, Bonifacio Frye, MARIO [phone]
--- NOTE | 2017-02-21 12:50 | ECHOCARDIOGRAM REPORT ---
*NOTICE TO RECEIVING [facility] [employer] This information is strictly Confidential and protected under [place] law. [place] law prohibits you from making any further disclosure of this information unless further disclosure is expressly permitted by the written consent of the person to whom it pertains or is authorized by law. A general authorization for the release of medical or other information is not sufficient for this purpose. Hospital accepts no responsibility if the information is made available to any other person, INCLUDING THE PATIENT. Interpretation Summary * Name: PAIGE NEVILLE Study Date: 02/21/2017 06:36 AM BP: 104/66 mmHg * Patient Location: .2T\S\E222\S\1 HR: 76 * : 1925 (M/d/yyyy) Gender: Female Height: 64 in * Age: 89 yrs Ethnicity: CA Weight: 130 lb * Ordering Physician: Nnamdi Rust * Referring Physician: Nessa Francis PA-C * Performed By: Kiet Shafer RCS * * Reason For Study: Chest Pain * BSA: 1.6 m2 * -- Conclusions -- * Left ventricular systolic function is moderately reduced. * Ejection fraction = 40%. * Moderate to large area of akinesis involving the mid and distal anterior wall, adjacent anteroseptum, and the entire apex. * There is mild mitral regurgitation. * There is mild to moderate tricuspid regurgitation. Procedure Details * A complete two-dimensional transthoracic echocardiogram was performed (2D, M-mode, Doppler and color flow Doppler). Left Ventricle * The left ventricle is normal in size. * There is no thrombus. * There is mild concentric left ventricular hypertrophy. * Left ventricular systolic function is moderately reduced. * Ejection fraction = 40%. * Moderate to large area of akinesis involving the mid and distal anterior wall, adjacent anteroseptum, and the entire apex. Right Ventricle * The right ventricle is normal size. * The right ventricular systolic function is normal as assessed by tricuspid annular plane systolic excursion (TAPSE) (normal >1.5 cm). Atria * The left atrium is mildly dilated. * Right atrial size is normal. * There is no evidence of atrial septal defect, but resolution does not allow assessment for a patent foramen ovale. Mitral Valve * The mitral valve is grossly normal. * There is no mitral valve stenosis. * There is mild mitral regurgitation. Tricuspid Valve * The tricuspid valve is not well visualized, but is grossly normal. * There is no tricuspid stenosis. * There is mild to moderate tricuspid regurgitation. * Right ventricular systolic pressure is elevated at 30-40mmHg. Aortic Valve * The aortic valve is trileaflet. * The aortic valve opens well. * Aortic valve sclerosis mild, without significant aortic valvular stenosis. * Trace aortic regurgitation. Pulmonic Valve * The pulmonary valve is not well seen, but the Doppler examination is normal without significant regurgitation or stenosis. Great Vessels * The aortic root is normal size. * The pulmonary is not well visualized. Pericardium/Pleural * There is no pericardial effusion. Great Vessels * Normal inferior vena cava size and collapsability with sniff indicates a normal right atrial pressure of 3 mmHg Left Ventricular Diastolic Function * Grade I diastolic dysfunction, (abnormal relaxation pattern). MMode 2D Measurements and Calculations IVSd 0.89 cm IVSs 1.1 cm LVIDd 4.8 cm LVIDs 3.5 cm LVPWd 0.93 cm LVPWs 1.1 cm IVS/LVPW 0.97 FS 27.8 % EDV(Teich) 108.3 ml ESV(Teich) 50.0 ml EF(Teich) 53.8 % EDV(cubed) 111.6 ml ESV(cubed) 42.0 ml EF(cubed) 62.4 % % IVS thick 21.3 % % LVPW thick 23.0 % LV mass(C)d 150.9 grams LV mass(C)dI 92.6 grams/m\S\2 LV mass(C)s 119.8 grams LV mass(C)sI 73.6 grams/m\S\2 SV(Teich) 58.3 ml SI(Teich) 35.8 ml/m\S\2 SV(cubed) 69.6 ml SI(cubed) 42.7 ml/m\S\2 EDV(MOD-sp4) 107.0 ml ESV(MOD-sp4) 70.0 ml EF(MOD-sp4) 34.6 % EDV(MOD-sp2) 116.0 ml ESV(MOD-sp2) 64.0 ml EF(MOD-sp2) 44.8 % SV(MOD-sp4) 37.0 ml SI(MOD-sp4) 22.7 ml/m\S\2 SV(MOD-sp2) 52.0 ml SI(MOD-sp2) 31.9 ml/m\S\2 Doppler Measurements and Calculations MV E max kristin 86.3 cm/sec MV A max kristin 94.9 cm/sec MV E/A 0.91 MV P1/2t max kristin 87.4 cm/sec MV P1/2t 118.8 msec MVA(P1/2t) 1.9 cm\S\2 MV dec slope 215.3 cm/sec\S\2 MV dec time 0.22 sec Ao V2 max 178.3 cm/sec Ao max PG 12.7 mmHg Ao max PG (full) 3.0 mmHg AI max kristin 365.4 cm/sec AI max PG 53.4 mmHg AI dec slope 270.3 cm/sec\S\2 AI P1/2t 395.9 msec LV V1 max PG 9.7 mmHg LV V1 max 155.8 cm/sec PA V2 max 91.5 cm/sec PA max PG 3.4 mmHg PI max kristin 203.3 cm/sec PI max PG 16.5 mmHg PI dec slope 225.3 cm/sec\S\2 PI P1/2t 264.3 msec TR max kristin 265.0 cm/sec
--- NOTE | 2017-02-21 15:51 | Gastrointestinal Consultation ---
Gastrointestinal Consultation Date of Consultation: Feb 21, 2017 Attending Physician: Clare Santos Consulting Physician: Bonifacio Alexandra Reason for Consultation: esophageal thickening History of Present Illness Patient is a 89 year old female admitted with chief complaint of. n/v and weakness. HPI. Sister in law present for H and P. She has chronic cough and on review of [facility] records I did an EGD 02/18/14 showing grade B esohagitis 2 cm HH, mild schatzkis rng. Smithers done 03/2014 multiple tubular adenoma polyps and anal abnormality thought to be prolapse by colorectal surgeon. She continued to struggle with cough despite PPI and eventually saw pulmonary who did bronch . Ecoli found on bronch treated with Bactrim. Since treatment on abx patient has becoming increasing fatigued, had rash, n/v, anorexia, was listless. Chest CTA per my view and discussion with Dr Miller showed some minor distal esophageal thickening versus CT chest 2016 and fluid in esophagus up to thoracic inlet. Dr Ziegler was worried about walled off esphoageal perforatio so thoracentesis done which showed normal pH excluding that. Pt states she has no dysphagia and food and fluid go into the stomach without a problem. No chest or abd pain. She tolerated some solid diet and liquids today with some nausea but no vomiting. Noted elevated troponins and markedly elevated BNP on admit. Past Medical/Surgical History Medical Problems: (1) Dehydration Status: Acute (2) Hyponatremia Status: Acute (3) Hypotension Status: Acute (4) Nausea, vomiting, and diarrhea Status: Acute (5) NSTEMI (non-ST elevated myocardial infarction) Status: Acute (6) Weakness Status: Acute Family History FH: hypertension FH: kidney disease FHx: heart disease Kidney stone Social History Smoking Status: Never Smoker Alcohol Use: occasionally Drug Use: none Marital Status: Housing Status: lives with family Occupation Status: unemployed Allergies Coded Allergies: Cefaclor (Verified Allergy, Unknown, RASH, 02/20/17) Dorzolamide (Verified Allergy, Unknown, SWELLING OF EYES, 02/20/17) CANT USE THE ONE WITH THE PRESERVATIVES. CAN USE PRESERVATIVE FREE Timolol (Verified Allergy, Unknown, SWELLING OF EYES, 02/20/17) CANT USE THE ONE WITH THE PRESERVATIVES. CAN USE PRESERVATIVE FREE Current Medications Home Meds and Scripts Medications Dose Route/Sig Max Daily Dose Days Date Category Vitamin E 400 Unit Tab 800 Mg PO DAILY 02/20/17 Reported Vitamin B6 (Pyridoxine HCl) 100 Mg Tab 100 Mg PO DAILY 02/20/17 Reported Cozaar (Losartan Potassium) 100 Mg Tab 100 Mg PO QAM 30 02/20/17 Reported Norvasc (Amlodipine Besylate) 2.5 Mg Tab 2.5 Mg PO DAILY 02/20/17 Reported Lorazepam 1 Mg Tab 1 Mg PO DAILY PRN 06/26/15 Reported Lumigan (Bimatoprost) 0.01 % Mary 1 Drops OP HS 30 06/26/15 Reported Metamucil Powder (Psyllium Hydrophilic Mucilloid) Powd 1 Pack PO DAILY 06/26/15 Reported Magnesium 250 mg (Magnesium) 1 Tab Tab 500 Mg PO DAILY 06/26/15 Reported [place]-3 (Fish Oil) 1 Ea Cap 1 Cap PO DAILY 06/26/15 Reported Multivitamin (Multivitamins) Tab 1 Tab PO DAILY 06/26/15 Reported Os-Gil 500 Plus D (Calcium/Vitamin D) Tab 1 Tab PO BID 06/26/15 Reported Ecotrin Or Generic * (Aspirin) 81 Mg Ectab 81 Mg PO DAILY 11/18/07 Reported Synthroid * (Levothyroxine Sodium) 0.075 Mg Tab 0.075 Mg PO DAILY 11/18/07 Reported Review of Systems see HPI. Otherwise 10 ROS negative. Physical Exam Date Time Temp Pulse Resp B/P (MAP) Pulse Ox O2 Delivery O2 Flow Rate FiO2 02/21/17 12:00 98 Nasal Cannula 2.0 02/21/17 11:33 36.7 125 18 110/54 (72) 97 02/21/17 09:05 95 02/21/17 08:00 98 Nasal Cannula 2.0 02/21/17 04:00 99 Nasal Cannula 2.0 02/21/17 03:51 36.9 76 17 104/66 (79) 99 Nasal Cannula 2.0 02/21/17 00:01 98 Nasal Cannula 2.0 02/20/17 23:59 36.3 82 21 95/61 (72) 96 Nasal Cannula 2.0 02/20/17 20:35 36.8 87 20 109/67 98 Room Air 02/20/17 19:57 88 18 105/55 95 02/20/17 19:11 92 02/20/17 19:08 94 20 99/57 94 Room Air 02/20/17 18:00 76 18 95/58 98 Room Air 02/20/17 16:58 96 Room Air 02/20/17 16:07 36.3 95 18 80/50 98 Room Air General Appearance: WD/WN, no apparent distress Neck: supple, trachea midline Respiratory/Chest: lungs clear (anterior), no respiratory distress Cardiovascular: no murmur Abdomen: normal bowel sounds, non tender, soft, no organomegaly, no pulsatile mass Neurologic/Psych: no motor/sensory deficits, normal mood/affect, oriented x 3 Skin: normal color, warm/dry Laboratory Results Last 24 Hours Test 02/20/17 16:35 02/20/17 16:48 02/20/17 19:52 02/20/17 20:30 White Blood Count 12.58 K/uL Red Blood Count 4.39 M/uL Hemoglobin 12.8 g/dL Hematocrit 36.8 % Mean Corpuscular Volume 83.8 fL Mean Corpuscular Hemoglobin 29.2 pg Mean Corpuscular Hemoglobin Concent 34.8 g/dl Platelet Count 230 K/uL Mean Platelet Volume 9.6 fL Neutrophils (%) (Auto) 52.3 % Lymphocytes (%) (Auto) 45.2 % Monocytes (%) (Auto) 1.4 % Eosinophils (%) (Auto) 0.0 % Basophils (%) (Auto) 0.2 % Neutrophils # (Auto) 6.58 K/uL Lymphocytes # (Auto) 5.68 K/uL Monocytes # (Auto) 0.18 K/uL Eosinophils # (Auto) 0.00 K/uL Basophils # (Auto) 0.03 K/uL RDW Standard Deviation 49.3 fL RDW Coefficient of Variation 16.2 % Immature Granulocyte % (Auto) 0.9 % Immature Granulocyte # (Auto) 0.11 K/uL Smudge Cells PRESENT Echinocytes 1+ Erythrocyte Sedimentation Rate 14 mm/hr Prothrombin Time 10.2 SECONDS Prothromb Time International Ratio 1.0 Activated Partial Thromboplast Time 27.0 SECONDS Partial Thromboplastin Ratio 1.0 Sodium Level 120 mmol/L Potassium Level 5.2 mmol/L Chloride Level 89 mmol/L Carbon Dioxide Level 24 mmol/L Anion Gap 7.0 mmol/L Blood Urea Nitrogen 22 mg/dl Creatinine 0.93 mg/dl Est Creatinine Clear Calc Drug Dose 36.9 ml/min Estimated GFR () 63.2 Estimated GFR (Non- 54.5 BUN/Creatinine Ratio 23.2 Random Glucose 127 mg/dl Osmolality 265 mOsm/kg Calcium Level 8.9 mg/dl Phosphorus Level 2.4 mg/dl Magnesium Level 2.4 mg/dl Total Bilirubin 0.3 mg/dl Aspartate Amino Transf (AST/SGOT) 28 U/L Alanine Aminotransferase (ALT/SGPT) 28 U/L Alkaline Phosphatase 62 U/L Total Creatine Kinase 64 U/L Creatine Kinase MB 10.4 ng/ml Creatine Kinase MB Ratio 16.3 Troponin I 1.350 ng/ml C-Reactive Protein 4.44 mg/dl Total Protein 5.9 gm/dl Albumin 2.9 gm/dl Globulin 3.0 gm/dl Albumin/Globulin Ratio 1.0 Lipase 175 U/L Random Cortisol 35.80 mcg/dl Bedside Lactic Acid Venous 3.54 mmol/L Lactic Acid Level 1.9 mmol/L Urine Color YELLOW Urine Appearance CLEAR Urine pH 6.5 Urine Specific [place] > 1.045 Urine Protein NEG Urine Glucose (UA) NEG Urine Ketones NEG Urine Occult Blood NEG Urine Nitrite NEG Urine Bilirubin NEG Urine Urobilinogen NEG Urine Leukocyte Esterase NEG Urine WBC (Auto) 1-5 /hpf Urine RBC (Auto) 5-10 /hpf Urine Hyaline Casts (Auto) 1-5 /lpf Urine Epithelial Cells (Auto) 10-20 /lpf Urine Bacteria (Auto) NEG Urine Osmolality 596 mOms/kg Test 02/20/17 22:45 02/21/17 02:32 02/21/17 07:29 02/21/17 10:45 Sodium Level 123 mmol/L 124 mmol/L Potassium Level 5.0 mmol/L 5.0 mmol/L Chloride Level 93 mmol/L 95 mmol/L Carbon Dioxide Level 24 mmol/L 22 mmol/L Anion Gap 6.0 mmol/L 7.0 mmol/L Blood Urea Nitrogen 19 mg/dl 19 mg/dl Creatinine 0.61 mg/dl 0.55 mg/dl Est Creatinine Clear Calc Drug Dose 54.0 ml/min 59.9 ml/min Estimated GFR () 93.2 96.4 Estimated GFR (Non- 80.4 83.2 BUN/Creatinine Ratio 30.8 35.0 Random Glucose 119 mg/dl 95 mg/dl Calcium Level 7.6 mg/dl 7.4 mg/dl Troponin I 1.030 ng/ml 0.831 ng/ml Bedside Glucose 128 mg/dl White Blood Count 11.36 K/uL Red Blood Count 3.90 M/uL Hemoglobin 11.1 g/dL Hematocrit 32.6 % Mean Corpuscular Volume 83.6 fL Mean Corpuscular Hemoglobin 28.5 pg Mean Corpuscular Hemoglobin Concent 34.0 g/dl Platelet Count 193 K/uL Mean Platelet Volume 9.7 fL Neutrophils (%) (Auto) 44.3 % Lymphocytes (%) (Auto) 52.2 % Monocytes (%) (Auto) 2.8 % Eosinophils (%) (Auto) 0.2 % Basophils (%) (Auto) 0.1 % Neutrophils # (Auto) 5.03 K/uL Lymphocytes # (Auto) 5.93 K/uL Monocytes # (Auto) 0.32 K/uL Eosinophils # (Auto) 0.02 K/uL Basophils # (Auto) 0.01 K/uL RDW Standard Deviation 49.3 fL RDW Coefficient of Variation 16.2 % Immature Granulocyte % (Auto) 0.4 % Immature Granulocyte # (Auto) 0.05 K/uL Pro-B-Type Natriuretic Peptide 48450 pg/ml Triglycerides Level 158 mg/dl Cholesterol Level 134 mg/dl HDL Cholesterol 30 mg/dl LDL Cholesterol, Calculated 72 mg/dl VLDL Cholesterol, Calculated 32 mg/dl Cholesterol/HDL Ratio 4.5 Pleural Fluid pH 7.43 Pleural Fluid Glucose 114 mg/dl Impression esophageal thickening on CT--no likely from GERD, recommend PPI. With elevated BNP and troponins would favor barium swallow/UGI at some point once n/v improved. fluid filled esophagus on CT--pt supine and likely stomach full of fluid so refluxed--she is handling saliva and holding food/fluid down so do not think this is esophageal obstruction n/v--perhaps side effect of bactrim with subsequent dehydration--can see if PUD on barium swallow/UGI. Will follow.
[2017-02-21] MEDS ORDERED: SODIUM CHLORIDE 0.9% 500ML 500 ML IV ONE (20:00)
[2017-02-21] MEDS ORDERED: METOPROLOL TARTRATE 1 MG/ML VIAL IV STA (20:27)
[2017-02-21] MEDS ORDERED: NURSING VERBAL MED ORDER ONE (20:45)
[2017-02-21] MEDS: BIMATOPROST 0.01% OP SOLN 2.5 ML BTL OP SCH (20:53)
[2017-02-21] MEDS: CEFTRIAXONE SOD INJ 1 GM in DEXTROSE 5% ADD-VANTAGE 50ML 50 ML IV SCH (20:53)
[2017-02-21 22:44] LABS: BUN/CREATININE RATIO 25.7 (10-20); CALCIUM 7.4 mg/dl (8.5-10.1); CREATININE 0.67 mg/dl (0.60-1.20); POTASSIUM 4.8 mmol/L (3.5-5.1)
[2017-02-21] MEDS ORDERED: HYDROmorphone INJ 1 MG/ML SYR IV STA (23:37)
[2017-02-22] VITALS (10 sets, daily range): BP systolic 91–131; BP diastolic 53–69; PULSE 90–127; TEMP 36.4–36.9; O2SAT 91–98
[2017-02-22] MEDS: SODIUM CHLORIDE 0.9% 1000ML 1,000 ML IV SCH ×2 (03:53)
[2017-02-22] MEDS: CLINDAMYCIN IV 600 MG in DEXTROSE 5% 50ML 50 ML IV SCH ×2 (03:53→13:25)
[2017-02-22] MEDS: LEVOTHYROXINE 75 MCG TAB PO SCH (06:02)
[2017-02-22 07:00] LABS: HEMATOCRIT 30.4 % (37-47); MEAN CELL VOLUME 85.4 fL (80-100); MEAN CORPUSCULAR HEMOGLOBIN 29.2 pg (25-34); MEAN CORPUSCULAR HGB CONC 34.2 g/dl (32-36); MEAN PLATELET VOLUME 9.3 fL (7.4-10.4); PLATELET COUNT 174 K/uL (130-400); RED BLOOD COUNT 3.56 M/uL (4.2-5.4); WHITE BLOOD COUNT 8.51 K/uL (4.8-10.8)
[2017-02-22 07:39] LABS: BUN/CREATININE RATIO 24.2 (10-20); CREATININE 0.6 mg/dl (0.60-1.20); POTASSIUM 4.5 mmol/L (3.5-5.1)
[2017-02-22 07:44] LABS: BASO % 0.4 %; BASO ABS # 0.03 K/uL (0-0.2); COMPLETE YES; EOS % 0.8 %; IG% 0.5 %; LYMPH % 59.6 %; LYMPH ABS # 5.07 K/uL (1.2-3.4); MONO % 3.6 %; NEUT % 35.1 %
[2017-02-22 07:45] LABS: ALB/GLOB RATIO 0.9 (0.9-2)
[2017-02-22] MEDS: PSYLLIUM 58.6% PWD PACK S\\F PO SCH (08:10)
[2017-02-22] MEDS: MAGNESIUM OXIDE 400 MG TAB PO SCH ×2 (08:11→21:41)
[2017-02-22] MEDS: ASPIRIN 81 MG ECTAB PO SCH (08:12)
[2017-02-22] MEDS: CALCIUM 600MG + VIT D 400 IU TAB PO SCH (08:12)
[2017-02-22] MEDS: MULTIVITAMIN TAB PO SCH (08:12)
[2017-02-22] MEDS: PANTOprazole SOD 40 MG TAB PO SCH (08:12)
[2017-02-22] MEDS: DORZOLAMIDE/TIMOLOL 22.3/6.8MG/ML 10 ML BTL OP SCH ×2 (08:12→08:18)
[2017-02-22] MEDS: ENOXAPARIN 40 MG/0.4 ML SYR SQ SCH (08:13)
[2017-02-22] MEDS ORDERED: METOPROLOL TARTRATE 25 MG TAB PO SCH (09:00)
--- NOTE | 2017-02-22 14:09 | Family Medicine Progress Note ---
Progress Note Date of Service Feb 22, 2017. Subjective Pt evaluation today including: conversation w/ patient, physical exam, chart review, lab review The patient was seen and examined at bedside. Patient reports not sleeping well due to the IV drip constantly beeping. Metoprolol was started overnight 12.5mg BID Patient is resting comfortably in bed. Still on Clear liquid diet in the AM. Tolerating it well. There has been no vomiting since yesterday. Plan of care was described to the patient and all questions were answered. Constitutional: No fever, No chills, No sweats Respiratory: + cough, + shortness of breath, No sputum, No wheezing Cardiovascular: No chest pain Abdomen: no nausea, no vomiting, No pain, No diarrhea Musculoskeletal: No joint pain Skin: No rash Objective Physical Exam Notes: General Appearance: WD/WN, thin, stable Eyes: PERRL, EOMI Neck: supple Respiratory/Chest: chest non-tender, lungs clear, normal breath sounds, no respiratory distress, no accessory muscle use Cardiovascular: regular rate, rhythm, no edema, no gallop, no JVD, no murmur Abdomen: normal bowel sounds, non tender, soft, no organomegaly Extremities: normal range of motion, non-tender, normal inspection, no pedal edema, no calf tenderness. Left hand does appear swollen, 1+ edema in left hand. Neurologic/Psychiatric: blind aide II-XII nml as tested, no motor/sensory deficits, alert, normal mood/affect, oriented x 3 Skin: no rash Assessment and Plan 89F with a PMHx of CLL and Breast Ca with recent bronchoscopy that grew E. Coli p/w weakness x several weeks. CTA was negative for PE but did show intralobular septal thickening and small pleural effusions with bibasilar atelectasis. Trops were found to be 1.35 and BNP was 16,000. Serial troponins , an echocardiogram, IV Rocephin for a failed outpatient course of Bactrim were ordered. Pulm and GI were consulted. Pulmonology (Dr. Ziegler) took the patient for emergent thoracocentesis for Boerhave's syndrome based on clinical history and CT Scan findings. PH of the pleural fluid obtained at thoracocentesis was 7.43 (less likely an esophageal perforation). GI recommends the addition of a PPI and future UGI or barium swallow to eval for PUD. On 02/21/2017 in the AM patient's rhythm converted into A.Fib. The patient was started on Xarelto 15mg daily and a daily BB for rate control. Cardiology was also consulted for management of her A. Fib and possible CHF exacerbation. New Onset Afib - Rate was in the 80s and 90s overnight and 100s now. - Echo showing EF of 40%. - AC: Xarelto 15mg daily. - Check TSH tomorrow. - Appreciate Cards Input. - Double Metoprolol to 25mg BID Pleural effusion - CT chest neg for PE. There are known pulmonary nodules noted, small pleural effusions bilaterally, and esophagus is filled to level of the thoracic inlet. - s/p Thoracocentesis - pH was 7.43. No concern of esophageal fluid leak. - Effusion likely sec to CHF due to a fib. Mild Troponin elevation - ? sec to Type 2 NSTEMI - Troponin elevated at 1.350-->1.00 -->0.7 - EKG was reviewed showing possible lateral ischemia with T wave inversion in the anterolateral leads - Demand ischemia likely sec to A fib. Must be going into a fib off and on before admission. Follow. - Echo showed Left ventricular systolic function is moderately reduced. Ejection fraction = 40%. Moderate to large area of akinesis involving the mid and distal anterior wall , adjacent anteroseptum, and the entire apex. There is mild mitral regurgitation. There is mild to moderate tricuspid regurgitation. - Continue aspirin. B pavithra added for a fib. - Per cards, adding Atorvastatin 20mg daily (can titrate up if patient tolerates it) - Will add on ARB once pressures normalize. Hyponatremia likely sec to CHF, ? dehydration from poor oral intake CTA indicated congestive change. Na= 120 -->...-->126 BNP was 16,000 Echocardiogram showed EF of 40%. E. Coli Positive Bronchial Washings done as outpatient - Unable to tolerate Bactrim. - Will broaden coverage per Dr. Ziegler's suggestion to Clindamycin. Day #2. - Blood Cultures showed no growth to date. Esophageal Thickening noted on CT scan - c/w oral PPI - Per GI, Barium Swallow or UGI series once primary issues resolve. HTN BP has improved with rate control. HOLD Norvasc 2.5 mg daily, HOLD Losartan 100 mg daily Hyperkalemia (resolved) -IVFs on board, likely secondary to dehydration -K+ was 5.2-->...-->4.5 h/o Breast CA & CLL In remission per patient. Hypothyroid Continue Synthroid. Will check TSH tomorrow. Diet Clear liquid and will advance as tolerated. DVT Proph Xarelto as above. Dispo: Lives at the [facility] and PCP is Dr. Chavez. PT and OT - Home on DC. DNR Resident Involvement: Resident Care Provided Care Provided: Adult Hospital Medicine Reviewed: Pt Seen/Exam by Me History feeling more energetic some cough. Constitutional: denies: fever Respiratory: negative: short of breath Cardiovascular: denies chest pain General Appearance: no apparent distress Respiratory: no respiratory distress, crackles (base) Cardiovascular: irregularly irregular Gastrointestinal: soft Neurologic/Psychiatric: alert, oriented x 3 Skin Characteristics: warm/dry Assessment/Plan Resident Physician Supervision Note: I independently interviewed and examined the patient and verified the espitia history and physical, reviewed labs and image studies, discussed the case with the resident Dr. Stevens and agree with the findings and care plan.
--- NOTE | 2017-02-22 14:51 | CARDIOLOGY CONSULTATION ---
DATE OF CONSULTATION: 02/22/2017 PERTINENT HISTORY: Mrs. Taylor is an 89-year-old white female, admitted on February 20 with nausea, vomiting, and malaise. The patient developed atrial fibrillation yesterday and her echocardiogram suggested an anterior wall myocardial infarction. This consultation was ordered to assist in her cardiac management. The patient claims she was in her usual state of health until February 08 when she underwent a bronchoscopy. She was found to have E. coli in the bronchial lavage fluid and was started on Bactrim. The patient developed a rash and side effects she felt secondary to the Bactrim. Specifically, she noted nausea, vomiting, fatigue, and intermittent chest "heaviness." She had never experienced chest heaviness prior to that described. The patient has never known of a diagnosis of atrial fibrillation. She has never experienced palpitations. She is currently asymptomatic and rate controlled atrial fibrillation. We have had a long discussion regarding pathophysiology and management of atrial fibrillation. She has never known of a prior cardiac event. She has never experienced exertional chest pain or limiting dyspnea. She further denies syncope, presyncope, PND, orthopnea, lower extremity edema, and claudication. Currently, the patient is resting comfortably in bed without complaints. PAST MEDICAL HISTORY: 1. Hypertension. 2. Hypercholesterolemia. 3. Bronchiectasis. 4. Interstitial lung disease. 5. Pulmonary nodules. 6. GERD. 7. Hiatal hernia. 8. Schatzki's ring. 9. Breast carcinoma - 1990. 10. Right breast lumpectomy - 1990. 11. CLL - 1991. 12. Glaucoma. 13. Colonic polyps. 14. Tonsillectomy. MEDICATIONS: 1. Metoprolol tartrate 12.5 mg b.i.d. 2. Lovenox 40 mg subQ daily. 3. Aspirin 81 mg per day. 4. Protonix 40 mg per day. 5. Synthroid 0.075 mg daily. 6. Magnesium oxide 400 mg b.i.d. 7. Ceftriaxone 1 gram IV daily. 8. Clindamycin 600 mg IV q. 8 hours. 9. Cosopt 1 drop daily. 10. Lumigan 0.01% one drop daily. ALLERGIES: CEFACLOR. SOCIAL HISTORY: The patient is recently a . She resides at the [facility]. Does not use tobacco. Alcohol use is occasional. FAMILY HISTORY: Noncontributory. REVIEW OF SYSTEMS: A 10-point review of systems is negative except for that described above. PHYSICAL EXAMINATION: GENERAL: This is a well-developed, well-nourished white female, in no acute distress. VITAL SIGNS: Blood pressure is 130/70 with an irregular pulse of 100, respiratory rate is 20. The patient is afebrile at 36.9 degrees Celsius. Saturations 97% on 2 liters nasal cannula. HEENT: Negative. NECK: Supple, full carotid upstrokes. No carotid bruits. Jugular venous pressure is flat at 90 degrees. There is no thyromegaly. CARDIOVASCULAR: Reveals an irregularly irregular rhythm with distant heart sounds. No obvious murmurs. No S3. LUNGS: Noted few crackles at the bases but no rhonchi or wheezes. ABDOMEN: Soft without bruits. EXTREMITIES: Reveal intact radial artery pulses bilaterally. There is no peripheral edema. DATA: CBC notes hemoglobin of 10.4, hematocrit 30.4, white count 8.5, and platelet count 174,000. Electrolytes note a sodium of 126, potassium 4.5, chloride 98, bicarbonate 22, BUN 14, creatinine 0.6, glucose 77. Initial troponin was elevated at 1.35 with followup values of 1.03 and 0.831. CK is 64 and MB fraction of 10.4. LDL cholesterol was 72 with an HDL of 30. BNP is 16,102. Magnesium level is normal at 2.4. Echocardiogram notes left ventricular dysfunction with an ejection fraction of 40%. There is akinesis of the mid and distal anterior wall, adjacent anteroseptal, and the entire apex. No apical thrombus. Mild mitral and mild to moderate tricuspid regurgitation noted. Initial EKG on presentation notes sinus rhythm with a left axis deviation, left atrial abnormality, poor R-wave progression across the anterior precordium, and the lateral T-wave abnormality. Tracing done yesterday notes atrial fibrillation with a rapid ventricular response, poor R-wave progression across the anterior precordium, and intercurrent and T-wave inversion in the anterolateral leads. IMPRESSION: Mrs. Taylor was admitted with complaints of malaise. Unfortunately, her echocardiogram and echocardiogram although with cardiac enzymes suggest a recent anterior wall myocardial infarction. Agree with use of metoprolol. Would restart losartan when able and will also continue aspirin indefinitely. It would be reasonable to start a statin despite her lipid values. In terms of her atrial fibrillation, that is completely asymptomatic. She is a candidate for a long-term anticoagulation with either Coumadin or one of the newer agents. We may need to increase her metoprolol to better control her ventricular response. PLAN: 1. Increase metoprolol to 25 mg b.i.d. 2. Resume losartan at low dose when able. 3. Would start either atorvastatin or rosuvastatin. 4. 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 5. Arrange cardiac rehabilitation. 6. Further recommendations depending on the clinical course.
--- NOTE | 2017-02-22 15:46 | Pulmonology Progress Note ---
Pulmonary Progress Note Date of Service Feb 22, 2017. Attending Dr. Ziegler Subjective Patient is feeling much improved today. She has had no further N/V today. Labs reviewed WBC 8.51 Hgb 10.4 Calcium 7.0 Total protein 4.3 Creatinine 0.60 BUN 14 She continues on IV Ceftriaxone and Clindamycin. Blood cultures showing NGTD. Repeat CXR yesterday morning showed small B/L Pleural effusions and bibasilar opacities. No pneumothorax noted. Images were viewed by me. Cardiology evaluated the patient and feels that she may have had an anterior wall NH recently. Patient was started on Xarelto. GI evaluated patient as wel and feels that she has esophageal thickening and fluid filled esophagus likely from GERD. Started PPI. Recommend barium swallow versus UGI at some point when patient is improved. Objective VS reviewed: HR 91 Afebrile BP 93/55 SaO2 91% on room air. On nasal cannula O2 overnight. General: Patient is awake, alert, cooperative, and in no acute distress. Well developed. Well-nourished. Head: Normocephalic, Atraumatic. ENT: PERRLA, No discharge, EOMI, Sclera normal Neck: Normal ROM. Trachea midline. No stridor Respiratory: No adventitious sounds heard on exam. No respiratory distress. No accessory muscle use. Cardiovascular: Irregularly irregular. Rate controlled. Extremities: Trace b/l LE edema. No cyanosis. Normal ROM Neuro: Alert. CN II-XII grossly intact. Sensation and motor function grossly intact. Psych: Mood and affect are normal. Assessment & Plan Pleural Effusions Bronchiectasis GERD Patient is s/p right-sided thoracentesis which revealed benign appearing pleural fluid with a pH of 7.43. No further intervention planned. She continues on IV Ceftriaxone and Clindamycin. Will D/C Clindamycin but continue Ceftriaxone for now for concern of possible pulmonary infection. GI following. Started on PPI for concerns of GERD. Cardio following. Started on Xarelto for concerns of recent anterior wall NH. Atrial fibrillation currently on Metoprolol for rate control. Continue Aspirin indefinitely. Follow cardiology recommendations. Patient is overall improved. From a respiratory standpoint she is stable. Recommend overnight pulse oximetry study prior to discharge for evaluation of nocturnal desaturation. Patient feels she sleeps much better with O2 supplementation at night. Pulmonary will follow peripherally, but no major changes at this time. Patient seen sure reviewed and plan agreed upon. Data Medications: Current Inpatient Medications Medications (Trade) Dose Ordered Sig/Marco A Route Start Time Stop Time Status Last Admin Dose Admin Ioversol (Optiray 320) 100 ml UD PRN IV 02/20/17 17:45 02/24/17 17:44 Acetaminophen (Tylenol Tab) 650 mg Q4H PRN PO 02/20/17 19:00 03/22/17 18:59 Ondansetron HCl (Zofran Inj) 4 mg Q6H PRN IV 02/20/17 19:00 03/22/17 18:59 Polyethylene (Miralax Powder Packet) 17 gm DAILY PRN PO 02/20/17 19:00 03/22/17 18:59 Aspirin (Ecotrin Tab) 81 mg DAILY PO 02/21/17 09:00 03/23/17 08:59 02/22/17 08:12 81 MG Calcium/Vitamin D (Caltrate Plus Tab) 1 tab DAILY PO 02/21/17 09:00 03/23/17 08:59 02/22/17 08:12 1 TAB Dorzolamide/ Timolol (Cosopt Op Soln) 1 drops DAILY OP 02/21/17 09:00 03/23/17 08:59 02/21/17 07:46 1 DROPS Levothyroxine Sodium (Synthroid Tab) 75 mcg DAILYBB PO 02/21/17 06:00 03/23/17 06:59 02/22/17 06:02 75 MCG Multivitamins (Multivitamin Tab) 1 tab DAILY PO 02/21/17 09:00 03/23/17 08:59 02/22/17 08:12 1 TAB Psyllium Hydrophilic Mucilloid (Metamucil Powder) 1 pkt DAILY PO 02/21/17 09:00 03/23/17 08:59 02/22/17 08:10 1 PKT Bimatoprost (Lumigan 0.01%) 1 drops HS OP 02/20/17 21:00 03/22/17 20:59 02/21/17 20:53 1 DROPS Magnesium Oxide (Mag-Ox Tab) 400 mg BID PO 02/20/17 21:15 03/22/17 21:14 02/22/17 08:11 400 MG Pantoprazole Sodium (Protonix Tab) 40 mg DAILY PO 02/21/17 09:00 03/23/17 08:59 02/22/17 08:12 40 MG Ceftriaxone Sodium 1 gm/ Dextrose 50 ml @ 100 mls/hr Q24H IV 02/20/17 21:00 02/27/17 20:59 02/21/17 20:53 100 MLS/HR Lorazepam (Ativan Tab) 0.5 mg HS PRN PO 02/20/17 23:00 03/22/17 22:59 02/20/17 23:07 0.5 MG Metoprolol Tartrate (Lopressor Tab) 12.5 mg BID PO 02/22/17 09:00 03/24/17 08:59 02/22/17 08:11 12.5 MG Sodium Chloride 1,000 ml @ 50 mls/hr Q20H IV 02/22/17 03:15 03/24/17 03:14 02/22/17 03:53 50 MLS/HR Rivaroxaban (Xarelto Tab) 15 mg DAILY@1700 PO 02/22/17 17:00 03/24/17 16:59 I & O: 24-Hour Column 02/23/17 08:00 Intake Total 900 ml Output Total 200 ml Balance 700 ml Vital Signs: Date Time Temp Pulse Resp B/P (MAP) Pulse Ox O2 Delivery O2 Flow Rate FiO2 02/22/17 15:29 36.6 91 18 93/55 (68) 91 Room Air 02/22/17 12:00 Nasal Cannula 2.0 02/22/17 11:33 36.7 109 20 131/69 (89) 97 02/22/17 08:14 36.9 103 18 123/63 (83) 96 02/22/17 08:00 Nasal Cannula 2.0 02/22/17 04:00 Nasal Cannula 02/22/17 03:50 36.7 90 18 91/53 (66) 98 Nasal Cannula 2.0 02/21/17 23:59 Nasal Cannula 02/21/17 23:40 36.5 85 18 100/66 (77) 96 Nasal Cannula 2.0 02/21/17 21:00 93 100/65 (77) 02/21/17 20:48 111 93/60 02/21/17 20:00 Nasal Cannula 02/21/17 19:14 36.4 111 19 93/60 (71) 94 Nasal Cannula 2.0 02/21/17 16:00 98 Nasal Cannula 2.0 02/21/17 15:56 36.6 97 18 92/60 (71) 97 Nasal Cannula 2.0 Laboratory Results: Last 24 Hours Test 02/21/17 22:09 02/22/17 06:40 Sodium Level 127 mmol/L 126 mmol/L Potassium Level 4.8 mmol/L 4.5 mmol/L Chloride Level 97 mmol/L 98 mmol/L Carbon Dioxide Level 22 mmol/L 22 mmol/L Anion Gap 8.0 mmol/L 6.0 mmol/L Blood Urea Nitrogen 17 mg/dl 14 mg/dl Creatinine 0.67 mg/dl 0.60 mg/dl Est Creatinine Clear Calc Drug Dose 49.2 ml/min 54.9 ml/min Estimated GFR () 90.3 93.7 Estimated GFR (Non- 77.9 80.8 BUN/Creatinine Ratio 25.7 24.2 Random Glucose 98 mg/dl 77 mg/dl Calcium Level 7.4 mg/dl 7.0 mg/dl White Blood Count 8.51 K/uL Red Blood Count 3.56 M/uL Hemoglobin 10.4 g/dL Hematocrit 30.4 % Mean Corpuscular Volume 85.4 fL Mean Corpuscular Hemoglobin 29.2 pg Mean Corpuscular Hemoglobin Concent 34.2 g/dl Platelet Count 174 K/uL Mean Platelet Volume 9.3 fL Neutrophils (%) (Auto) 35.1 % Lymphocytes (%) (Auto) 59.6 % Monocytes (%) (Auto) 3.6 % Eosinophils (%) (Auto) 0.8 % Basophils (%) (Auto) 0.4 % Neutrophils # (Auto) 2.99 K/uL Lymphocytes # (Auto) 5.07 K/uL Monocytes # (Auto) 0.31 K/uL Eosinophils # (Auto) 0.07 K/uL Basophils # (Auto) 0.03 K/uL RDW Standard Deviation 52.1 fL RDW Coefficient of Variation 16.6 % Immature Granulocyte % (Auto) 0.5 % Immature Granulocyte # (Auto) 0.04 K/uL Total Bilirubin 0.2 mg/dl Aspartate Amino Transf (AST/SGOT) 17 U/L Alanine Aminotransferase (ALT/SGPT) 23 U/L Alkaline Phosphatase 47 U/L Total Protein 4.3 gm/dl Albumin 2.0 gm/dl Globulin 2.3 gm/dl Albumin/Globulin Ratio 0.9
[2017-02-22] MEDS: RIVAROXABAN TAB 15 MG TAB PO SCH (16:39)
[2017-02-22] MEDS ORDERED: METOPROLOL TARTRATE 1 MG/ML VIAL IV STA (16:46)
[2017-02-22] MEDS: BIMATOPROST 0.01% OP SOLN 2.5 ML BTL OP SCH (21:36)
[2017-02-22] MEDS: CEFTRIAXONE SOD INJ 1 GM in DEXTROSE 5% ADD-VANTAGE 50ML 50 ML IV SCH (21:39)
[2017-02-22] MEDS: METOPROLOL TARTRATE 25 MG TAB PO SCH (21:40)
[2017-02-23] VITALS (7 sets, daily range): BP systolic 100–131; BP diastolic 64–83; PULSE 76–109; TEMP 36.3–36.8; O2SAT 93–97
[2017-02-23] MEDS: LEVOTHYROXINE 75 MCG TAB PO SCH (06:27)
--- NOTE | 2017-02-23 07:13 | Family Medicine Progress Note ---
Progress Note Date of Service Feb 23, 2017. Subjective Pt evaluation today including: conversation w/ patient, physical exam, chart review, lab review The patient was seen and examined at bedside. No acute overnight events. Tele showed Afib in the 100s-130s getting worse in the morning. Patient feels more fatigued that previously. Sleep: slept better than previously, had some bad dreams Diet: Tolerated breakfast without any nausea or vomiting. Vomiting: None Nausea: None Plan of care was described to the patient and all questions were answered. Constitutional: No fever, No chills, No sweats Respiratory: + slight cough - worse than yesterday, No sputum, No wheezing Cardiovascular: No chest pain Abdomen: No pain, No diarrhea Musculoskeletal: No joint pain Skin: No rash Objective Physical Exam Notes: General Appearance: WD/WN, thin Eyes: PERRL, EOMI Neck: supple Respiratory/Chest: chest non-tender, lungs clear, normal breath sounds, no respiratory distress, no accessory muscle use Cardiovascular: regular rate, rhythm, no edema, no gallop, no JVD, no murmur Abdomen: normal bowel sounds, non tender, soft, no organomegaly Extremities: normal range of motion, non-tender, normal inspection, no pedal edema, no calf tenderness. Left hand does appear swollen, edema in the left hand has resolved. 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 Coli p/w weakness x several weeks. CTA was negative for PE but did show intralobular septal thickening and small pleural effusions with bibasilar atelectasis. Trops were found to be 1.35 and BNP was 16,000. Serial troponins , an echocardiogram, IV Rocephin for a failed outpatient course of Bactrim were ordered. Pulm and GI were consulted. Pulmonology (Dr. Ziegler) took the patient for emergent thoracocentesis for Boerhave's syndrome based on clinical history and CT Scan findings. PH of the pleural fluid obtained at thoracocentesis was 7.43 (less likely an esophageal perforation). GI recommends the addition of a PPI and future UGI or barium swallow to evaluate for Peptic Ulcer Disease. On 02/21/2017 in the AM patient's rhythm converted into A.Fib. The patient was started on Xarelto 15mg daily and a daily BB for rate control. Cardiology was also consulted for management of her A. Fib and possible CHF exacerbation. Metoprolol was titrated up to 25mg BID. New Onset Afib - Rate was in the 80s and 90s overnight and 100s now. - Echo showing EF of 40%. - c/w Xarelto 15mg daily. - TSH = 7.6. To confirm compliance with daily med dose. - On Metoprolol to 25mg BID - after discussing with Dr. Hayes we will give 0.25 of Digoxin now and 0.125 daily in the afternoon. Pleural effusion likely 2/2 to Afib. - CT chest neg for PE. There are known pulmonary nodules noted, small pleural effusions bilaterally, and esophagus is filled to level of the thoracic inlet. - s/p Thoracocentesis - pH was 7.43. No concern of esophageal fluid leak. - Will order nocturnal pulse ox per pulm recs. - Pt complaining of worsening cough and is already on a PPI for heartburn, no crackles on exam, 2 view X-ray today showed "Stable slight interval decrease in bibasilar opacities with persistent small pleural effusions and mild pulmonary vascular congestion. No perri pulmonary edema." Mild Troponin elevation - ? sec to Type 2 NSTEMI - Troponin elevated at 1.350-->1.00 -->0.7 - EKG was reviewed showing possible lateral ischemia with T wave inversion in the anterolateral leads - Demand ischemia likely sec to A fib. Must be going into a fib off and on before admission. Follow. - Echo showed Left ventricular systolic function is moderately reduced. Ejection fraction = 40%. Moderate to large area of akinesis involving the mid and distal anterior wall , adjacent anteroseptum, and the entire apex. There is mild mitral regurgitation. There is mild to moderate tricuspid regurgitation. - Continue aspirin. B pavithra added for a fib. - c/w Atorvastatin 20mg daily (can titrate up if patient tolerates it) - Add on Losartan once pressures normalizes. Hyponatremia likely sec to CHF, ? dehydration from poor oral intake CTA indicated congestive change. Na= 120 -->...-->126-->129 BNP was 16,000 Echocardiogram showed EF of 40%. E. Coli Positive Bronchial Washings done as outpatient - Unable to tolerate Bactrim. - c/w Ceftriaxone Day #3. s/p two days of Additional Clindamycin that has been stopped per pulm. - Blood Cultures showed no growth to date. ? GERD Nausea on admission - c/w oral PPI - this was started on this admission. - Per GI, Barium Swallow or UGI series once primary issues resolve. Recommend following this up as outpatient, PCP is Dr. Chavez, will include in discharge instructions. - Pt advised not to lay supine for at least 4 hours after eating. HTN BP is low but improves with rate control, I expect it to normalize with proper rate controls. Hopefully restart BP meds once BP normalizes. HOLD Norvasc 2.5 mg daily, HOLD Losartan 100 mg daily Hypothyroid Continue Synthroid. TSH = 7.6. Hyperkalemia (resolved) -IVFs on board, likely secondary to dehydration -K+ was 5.2-->...-->4.5-->4.1 h/o Breast CA & CLL In remission per patient. Diet Heart Health Diet. DVT Proph Xarelto as above. Dispo: Lives at [facility] and PCP is Dr. Chavez. Need to wean from O2 or set up home oxygen (new requirement). PT and OT - Home on DC. DNR Resident Involvement: Resident Care Provided Care Provided: Adult Hospital Medicine Reviewed: Pt Seen/Exam by Me History slept well last night. feeling more tired today compared to yesterday but overall feeling much better since admission Constitutional: denies: fever Respiratory: negative: short of breath Cardiovascular: denies chest pain General Appearance: no apparent distress Respiratory: no respiratory distress, crackles (basilar) Cardiovascular: irregularly irregular Gastrointestinal: normal bowel sounds, non tender, soft Neurologic/Psychiatric: alert, oriented x 3 Skin Characteristics: warm/dry Assessment/Plan Resident Physician Supervision Note: I independently interviewed and examined the patient and verified the espitia history and physical, reviewed labs and image studies, discussed the case with the resident Dr. Stevens and agree with the findings and care plan.
[2017-02-23 07:20] LABS: HEMATOCRIT 32.6 % (37-47); MEAN CELL VOLUME 85.6 fL (80-100); MEAN CORPUSCULAR HEMOGLOBIN 28.6 pg (25-34); MEAN CORPUSCULAR HGB CONC 33.4 g/dl (32-36); MEAN PLATELET VOLUME 9.4 fL (7.4-10.4); PLATELET COUNT 223 K/uL (130-400); RED BLOOD COUNT 3.81 M/uL (4.2-5.4); WHITE BLOOD COUNT 10.23 K/uL (4.8-10.8)
[2017-02-23 07:53] LABS: BUN/CREATININE RATIO 15.4 (10-20); CALCIUM 7.3 mg/dl (8.5-10.1); CREATININE 0.78 mg/dl (0.60-1.20); MAGNESIUM 2.3 mg/dl (1.8-2.4); POTASSIUM 4.1 mmol/L (3.5-5.1)
[2017-02-23 08:04] LABS: BASO % 0.3 %; BASO ABS # 0.03 K/uL (0-0.2); COMPLETE YES; EOS % 0.7 %; IG% 0.5 %; LYMPH % 64.3 %; LYMPH ABS # 6.58 K/uL (1.2-3.4); MONO % 3.4 %; NEUT % 30.8 %; THYROID STIMULATING HORMONE 7.63 uIu/ml (0.300-4.500)
[2017-02-23] MEDS: ASPIRIN 81 MG ECTAB PO SCH (08:13)
[2017-02-23] MEDS: CALCIUM 600MG + VIT D 400 IU TAB PO SCH (08:13)
[2017-02-23] MEDS: MULTIVITAMIN TAB PO SCH (08:13)
[2017-02-23] MEDS: MAGNESIUM OXIDE 400 MG TAB PO SCH ×2 (08:13→19:51)
[2017-02-23] MEDS: METOPROLOL TARTRATE 25 MG TAB PO SCH ×2 (08:13→19:51)
[2017-02-23] MEDS: PANTOprazole SOD 40 MG TAB PO SCH (08:13)
[2017-02-23] MEDS: PSYLLIUM 58.6% PWD PACK S\\F PO SCH (08:14)
[2017-02-23] MEDS: DORZOLAMIDE/TIMOLOL 22.3/6.8MG/ML 10 ML BTL OP SCH (08:15)
[2017-02-23] MEDS ORDERED: DIGOXIN 0.25 MG TAB PO ONE (09:45)
--- NOTE | 2017-02-23 09:54 | CARDIOLOGY PROGRESS NOTE ---
DATE: 02/23/2017 SUBJECTIVE: Mrs. Taylor is resting comfortably in bed without complaints of chest pain, dyspnea, or palpitations. OBJECTIVE: VITAL SIGNS: Blood pressure is 103/66 with a regular pulse of 90. Respiratory rate is 20. The patient is afebrile at 36.6 degrees Celsius. Saturation is 95% on 2 liters nasal cannula. NECK: Supple with full carotid upstrokes. No carotid bruits. Jugular venous pressure is flat at 90 degrees. There is no thyromegaly. CARDIOVASCULAR: Reveals an irregularly irregular rhythm with distant heart sounds. No obvious murmurs. LUNGS: Clear without rales, rhonchi, or wheezes. ABDOMEN: Soft, nontender without bruits. EXTREMITIES: Reveal intact radial artery pulses bilaterally. There is no peripheral edema. LABORATORY DATA: CBC notes hemoglobin of 10.9, hematocrit 32.6, white count 10.2, platelet count 223,000. Electrolytes note a sodium of 129, potassium 4.1, chloride 100, bicarbonate 23, BUN 12, creatinine 0.78, glucose 84. campus monitor notes atrial fibrillation with a borderline ventricular response. IMPRESSION AND PLAN: 1. Status post anterior myocardial infarction -- likely occurred within the last 2 weeks. She is hemodynamically stable. Continue medical management. Would restart losartan when blood pressure allows. We would also start a high intensity statin. 2. Paroxysmal atrial fibrillation -- would add digoxin to help better control ventricular response. Blood pressure does not allow increase in her beta pavithra. 3. Hypertension -- controlled. 4. Hypercholesterolemia - as above, would start high intensity statin. 5. Bronchiectasis. 6. Interstitial lung disease. 7. Gastroesophageal reflux disease.
[2017-02-23] MEDS: ATORVASTATIN 20 MG TAB PO SCH (10:06)
--- NOTE | 2017-02-23 11:36 | DIAGNOSTIC IMAGING REPORT ---
CHEST 2 VIEWS ROUTINE CLINICAL HISTORY: 89 years-old Female presenting with worsening cough, h/o pleural effusions. TECHNIQUE: PA and lateral views of the chest were obtained. COMPARISON: 02/21/2017. FINDINGS: Atherosclerosis of aortic arch. Cardiac silhouette normal in size. Prominent pulmonary vasculature there isStable slight interval decrease in bibasilar opacities with persistent small pleural effusions. No pneumothorax. Osseous structures normal. Right axillary and right breast surgical clips. IMPRESSION: 1. Stable slight interval decrease in bibasilar opacities with persistent small pleural effusions and mild pulmonary vascular congestion. No perri pulmonary edema. Electronically signed by: Alejandro Morejon M.D. 02/23/2017 11:34 AM Dictated Date/Time: 02/23/2017 11:20 AM
--- NOTE | 2017-02-23 14:58 | Pulmonology Progress Note ---
Pulmonary Progress Note Date of Service Feb 23, 2017. Attending Dr. Ziegler Subjective Patient did have some mild dry cough this morning but has resolved. She does note fatigue this morning which is notably increased from yesterday. Objective VS: I/Os: +3.2L SaO2%: 90/97% FiO2: 2L RR: 18-20 Pulse: 83-109 Resp: Clear to auscultation Card: S1-S2 is regular rate and rhythm Abd: Positive bowel sounds soft nontender Ext: No clubbing cyanosis or edema Studies WBC: 10K Microbiology: Blood culture 2 no growth Pleural pH: 7.43 Pleural glucose: 114 CXR 02/23/2017: No acute changes as compared to 02/21/2017 CTA chest on 02/20/2017 o No pulmonary emboli o Small bilateral basilar pleural effusions o Bronchiectasis and infiltrates within the right middle lobe and lingula o Mediastinal and hilar adenopathy o Dilated esophagus with air-fluid level Active pulmonary Medications: 1. Ceftriaxone 1 g every 24 Assessment & Plan 89-year-old female admitted with bilateral pleural effusions, shortness of breath and notable fatigue: #1 Pleural Effusion's: Patient underwent right-sided thoracentesis with no signs of infection or other significant etiologies. It appears at this time most likely secondary to volume overload state. #2 Bronchiectasis: Patient CT suggests she is can have chronic bronchiectasis of the right middle lobe as well as the anterior subsegment left lower lobe. I do not believe patient has had an acute exacerbation/bacterial exacerbation and antibiotics are not necessary. At this time I'll discontinue her current antibiotic regimen. Previous Escherichia coli growth should be well controlled on previous Bactrim regimen his current ceftriaxone. #3 GERD: He appears at this time patient's esophageal most likely consistent with GERD and this could be the etiology of her current chronic bronchiectasis as well. This will have to be monitored as an outpatient. #4 Oxygen: Patient is currently doing well on 2 L nasal cannula. Prior to discharge her with performed two-step process for evaluation of possible home oxygen requirement. Signoff: Primary care will sign off at this time. Data Medications: Current Inpatient Medications Medications (Trade) Dose Ordered Sig/Marco A Route Start Time Stop Time Status Last Admin Dose Admin Ioversol (Optiray 320) 100 ml UD PRN IV 02/20/17 17:45 02/24/17 17:44 Acetaminophen (Tylenol Tab) 650 mg Q4H PRN PO 02/20/17 19:00 03/22/17 18:59 Ondansetron HCl (Zofran Inj) 4 mg Q6H PRN IV 02/20/17 19:00 03/22/17 18:59 Polyethylene (Miralax Powder Packet) 17 gm DAILY PRN PO 02/20/17 19:00 03/22/17 18:59 Aspirin (Ecotrin Tab) 81 mg DAILY PO 02/21/17 09:00 03/23/17 08:59 02/23/17 08:13 81 MG Calcium/Vitamin D (Caltrate Plus Tab) 1 tab DAILY PO 02/21/17 09:00 03/23/17 08:59 02/23/17 08:13 1 TAB Dorzolamide/ Timolol (Cosopt Op Soln) 1 drops DAILY OP 02/21/17 09:00 03/23/17 08:59 02/21/17 07:46 1 DROPS Levothyroxine Sodium (Synthroid Tab) 75 mcg DAILYBB PO 02/21/17 06:00 03/23/17 06:59 02/23/17 06:27 75 MCG Multivitamins (Multivitamin Tab) 1 tab DAILY PO 02/21/17 09:00 03/23/17 08:59 02/23/17 08:13 1 TAB Psyllium Hydrophilic Mucilloid (Metamucil Powder) 1 pkt DAILY PO 02/21/17 09:00 03/23/17 08:59 02/23/17 08:14 1 PKT Bimatoprost (Lumigan 0.01%) 1 drops HS OP 02/20/17 21:00 03/22/17 20:59 02/22/17 21:36 1 DROPS Magnesium Oxide (Mag-Ox Tab) 400 mg BID PO 02/20/17 21:15 03/22/17 21:14 02/23/17 08:13 400 MG Pantoprazole Sodium (Protonix Tab) 40 mg DAILY PO 02/21/17 09:00 03/23/17 08:59 02/23/17 08:13 40 MG Ceftriaxone Sodium 1 gm/ Dextrose 50 ml @ 100 mls/hr Q24H IV 02/20/17 21:00 02/27/17 20:59 02/22/17 21:39 100 MLS/HR Lorazepam (Ativan Tab) 0.5 mg HS PRN PO 02/20/17 23:00 03/22/17 22:59 02/20/17 23:07 0.5 MG Sodium Chloride 1,000 ml @ 50 mls/hr Q20H IV 02/22/17 03:15 03/24/17 03:14 02/22/17 00:00 50 MLS/HR Rivaroxaban (Xarelto Tab) 15 mg DAILY@1700 PO 02/22/17 17:00 03/24/17 16:59 02/22/17 16:39 15 MG Metoprolol Tartrate (Lopressor Tab) 25 mg BID PO 02/22/17 21:00 03/24/17 08:59 02/23/17 08:13 25 MG Atorvastatin Calcium (Lipitor Tab) 20 mg QAM PO 02/23/17 09:00 03/25/17 08:59 02/23/17 10:06 20 MG Digoxin (Lanoxin Tab) 0.125 mg DAILY@16 PO 02/23/17 16:00 03/25/17 15:59 I & O: 24-Hour Column 02/24/17 08:00 Intake Total 931 ml Output Total 200 ml Balance 731 ml Vital Signs: Date Time Temp Pulse Resp B/P (MAP) Pulse Ox O2 Delivery O2 Flow Rate FiO2 02/23/17 12:00 Room Air 02/23/17 10:49 36.4 83 18 100/64 (76) 94 Room Air 02/23/17 10:04 100 02/23/17 08:00 Room Air 02/23/17 07:53 36.6 109 20 103/66 (78) 95 Room Air 02/23/17 04:00 Room Air 02/23/17 03:40 36.3 100 20 100/67 (78) 97 Nasal Cannula 2.0 02/22/17 23:59 Room Air 02/22/17 23:45 36.4 92 16 104/68 (80) 94 Nasal Cannula 2.0 02/22/17 21:42 107 107/65 (79) 94 Room Air 02/22/17 20:16 36.5 104 20 99/63 (75) 93 Room Air 02/22/17 20:00 Room Air 02/22/17 17:59 99 15 101/63 (76) 02/22/17 17:09 104 20 104/64 (77) 95 Room Air 02/22/17 16:57 127 109/68 (82) 02/22/17 16:57 127 109/68 02/22/17 16:00 Room Air 02/22/17 15:29 36.6 91 18 93/55 (68) 91 Room Air Laboratory Results: Last 24 Hours Test 02/23/17 06:56 White Blood Count 10.23 K/uL Red Blood Count 3.81 M/uL Hemoglobin 10.9 g/dL Hematocrit 32.6 % Mean Corpuscular Volume 85.6 fL Mean Corpuscular Hemoglobin 28.6 pg Mean Corpuscular Hemoglobin Concent 33.4 g/dl Platelet Count 223 K/uL Mean Platelet Volume 9.4 fL Neutrophils (%) (Auto) 30.8 % Lymphocytes (%) (Auto) 64.3 % Monocytes (%) (Auto) 3.4 % Eosinophils (%) (Auto) 0.7 % Basophils (%) (Auto) 0.3 % Neutrophils # (Auto) 3.15 K/uL Lymphocytes # (Auto) 6.58 K/uL Monocytes # (Auto) 0.35 K/uL Eosinophils # (Auto) 0.07 K/uL Basophils # (Auto) 0.03 K/uL RDW Standard Deviation 51.9 fL RDW Coefficient of Variation 16.5 % Immature Granulocyte % (Auto) 0.5 % Immature Granulocyte # (Auto) 0.05 K/uL Sodium Level 129 mmol/L Potassium Level 4.1 mmol/L Chloride Level 100 mmol/L Carbon Dioxide Level 23 mmol/L Anion Gap 6.0 mmol/L Blood Urea Nitrogen 12 mg/dl Creatinine 0.78 mg/dl Est Creatinine Clear Calc Drug Dose 42.2 ml/min Estimated GFR () 78.1 Estimated GFR (Non- 67.4 BUN/Creatinine Ratio 15.4 Random Glucose 84 mg/dl Calcium Level 7.3 mg/dl Magnesium Level 2.3 mg/dl Thyroid Stimulating Hormone (TSH) 7.630 uIu/ml Free Thyroxine 1.04 ng/dl
[2017-02-23] MEDS ORDERED: DIGOXIN 0.125 MG TAB PO SCH (16:00)
[2017-02-23] MEDS: RIVAROXABAN TAB 15 MG TAB PO SCH (16:52)
[2017-02-23] MEDS: BIMATOPROST 0.01% OP SOLN 2.5 ML BTL OP SCH (19:50)
[2017-02-23] MEDS: CEFTRIAXONE SOD INJ 1 GM in DEXTROSE 5% ADD-VANTAGE 50ML 50 ML IV SCH (19:50)
[2017-02-24 03:50] VITALS: BP 152/70; PULSE 77; TEMP 36.9; O2SAT 93
[2017-02-24 04:00] VITALS: O2SAT 93
[2017-02-24] MEDS: SODIUM CHLORIDE 0.9% 1000ML 1,000 ML IV SCH (04:34)
[2017-02-24 05:54] LABS: HEMATOCRIT 29.2 % (37-47); MEAN CELL VOLUME 85.4 fL (80-100); MEAN CORPUSCULAR HEMOGLOBIN 28.7 pg (25-34); MEAN CORPUSCULAR HGB CONC 33.6 g/dl (32-36); PLATELET COUNT 192 K/uL (130-400); RED BLOOD COUNT 3.42 M/uL (4.2-5.4); WHITE BLOOD COUNT 7.56 K/uL (4.8-10.8)
[2017-02-24] MEDS: LEVOTHYROXINE 75 MCG TAB PO SCH (06:05)
[2017-02-24 06:22] LABS: BUN/CREATININE RATIO 16.5 (10-20); CALCIUM 7.2 mg/dl (8.5-10.1); CREATININE 0.73 mg/dl (0.60-1.20); POTASSIUM 4.2 mmol/L (3.5-5.1)
[2017-02-24 07:03] LABS: BASO % 0.3 %; BASO ABS # 0.02 K/uL (0-0.2); COMPLETE YES; EOS % 0.8 %; IG% 0.9 %; LYMPH % 61.4 %; LYMPH ABS # 4.64 K/uL (1.2-3.4); NEUT % 33.6 %
[2017-02-24 07:06] VITALS: BP 157/75; PULSE 78; TEMP 36.5; O2SAT 95
[2017-02-24] MEDS: DORZOLAMIDE/TIMOLOL 22.3/6.8MG/ML 10 ML BTL OP SCH (07:51)
[2017-02-24] MEDS: PSYLLIUM 58.6% PWD PACK S\\F PO SCH (07:53)
[2017-02-24] MEDS: PANTOprazole SOD 40 MG TAB PO SCH (07:53)
[2017-02-24] MEDS: MAGNESIUM OXIDE 400 MG TAB PO SCH (07:53)
[2017-02-24] MEDS: MULTIVITAMIN TAB PO SCH (07:53)
[2017-02-24] MEDS: METOPROLOL TARTRATE 25 MG TAB PO SCH (07:53)
[2017-02-24] MEDS: CALCIUM 600MG + VIT D 400 IU TAB PO SCH (07:53)
[2017-02-24] MEDS: ATORVASTATIN 20 MG TAB PO SCH (07:54)
[2017-02-24] MEDS: ASPIRIN 81 MG ECTAB PO SCH (07:54)
[2017-02-24 08:00] VITALS: O2SAT 95
[2017-02-24 10:44] VITALS: BP 121/69; PULSE 81; TEMP 36.6; O2SAT 95
--- NOTE | 2017-02-24 11:12 | CARDIOLOGY PROGRESS NOTE ---
DATE: 02/24/2017 DATE: 02/24/2017 SUBJECTIVE: Mrs. Taylor is resting comfortably in bed without complaints of chest pain, dyspnea, or palpitations. She was aware that she converted to sinus rhythm yesterday at noon. OBJECTIVE: VITAL SIGNS: Blood pressure 157/75 with a regular pulse of 78. Respiratory rate is 18. The patient is afebrile at 36.5 degrees Celsius. Saturations 95% on room air. NECK: Supple with full carotid upstrokes. No carotid bruits. Jugular venous pressure is flat at 90 degrees. There is no thyromegaly. CARDIOVASCULAR EXAMINATION: Reveals a regular rhythm with normal S1 and S2. Heart sounds are distant. No obvious murmurs. LUNGS: Clear without rales, rhonchi, or wheezes. ABDOMEN: Soft, nontender without bruits. EXTREMITIES: Reveal intact radial artery pulses bilaterally. There is no peripheral edema. LABORATORY DATA: CBC notes hemoglobin of 9.8, hematocrit 29.2, white count 7.56, platelet count 192,000. Electrolytes note a sodium of 134, potassium 4.2, chloride 102, bicarbonate 24, BUN 12, creatinine 0.7, glucose 79. electronic device monitor notes sinus rhythm. IMPRESSION AND PLAN: 1. Status post anterior wall myocardial infarction -- likely occurred within the last 2 weeks. Would restart losartan as her blood pressure will allow today. 2. Paroxysmal atrial fibrillation -- patient has converted to sinus rhythm. No need to continue digoxin. 3. Hypertension -- controlled. 4. Hypercholesterolemia - would start high intensity statin. 5. Bronchiectasis. 6. Interstitial lung disease. 7. Gastroesophageal reflux disease.
[2017-02-24] MEDS ORDERED: XRL15 PO (11:26)
[2017-02-24] MEDS ORDERED: LPR25 PO (11:27)
[2017-02-24] MEDS ORDERED: CZR50 PO (11:27)
--- NOTE | 2017-02-24 11:28 | Discharge Instructions ---
Discharge Instructions Date of Service Feb 24, 2017. Admission Reason for Admission: Dehydration, Hyperkalemia Discharge Discharge Diagnosis / Problem: Atrial fibrillation, E Coli Pneumonia, Bronchiectasis, GERD Discharge Goals Goal(s): Improve disease control Activity Recommendations Activity Limitations: per Instructions/Follow-up section Lifting Limitations: gradually increase as tolerated Exercise/Sports Limitations: none Shower/Bathe: no limitations . Instructions / Follow-Up Instructions / Follow-Up Many of your medications were changed, and it can be confusing! If you have any issues with them please contact us at the hospital or with Dr. Chavez. - Heart rhythm - Your heart was in the rhythm atrial fibrillation while in the hospital. This is when your heart rate was fast and irregular, but then it went back to normal on 02/23/17. The medications you will continue for this are: * Metoprolol tartrate (Lopressor) at 25mg TWICE A DAY. This slows your heart rate down. * Rivaroxaban (Xarelto) 15mg DAILY. This is a blood thinner. Make sure if you notice any bleeding that you apply pressure for at least 15 minutes, and return to the ED if needed. *You were on Digoxin to also help the atrial fibrillation, but since your heart went out of it, you do not need to continue this. - Reflux - It is important to control this when at home to prevent it worsening. If reflux gets worse, it can make a pneumonia happen again. Avoid caffeine and do not eat 4 hours before bedtime. Try to sleep with your head slightly elevated with a pillow. The medication for this is: * Pantoprazole (Protonix) 40mg DAILY. Take this in the morning, and eat within 30 minutes for it to work best. - Thyroid issues - Your thyroid function test (TSH) was 7.3 while in the hospital. Continue taking the SAME DOSE of Levothyroxine everyday, but try to take it in the morning, before taking any other medications, or eating. - Cholesterol - Due to the heart issues you had in the hospital, we are adding in a medication in. Take this at nighttime, and make sure to tell your PCP if you feel you do not tolerate it. Usually there are not many side effects apart from muscle aches. * Atorvastatin (Lipitor) 40mg ONCE A DAY is the medication - Blood pressure - You were previously on a medication Losartan 100mg daily. Since your blood pressure has been on the lower side, we will keep this at HALF of a pill, but your PCP can increase this as needed. * Losartan 50mg daily INSTEAD OF 100mg daily * Continue your medication Amlodipine 2.5mg ----- Home Care: * Take your medications exactly as directed. Don't skip doses. * Remember that recovery after a heart attack takes time. Plan to rest for at lease 4-8 weeks while you recover. Then return to normal activity when your doctor says it's okay. * Ask your doctor about joining a heart rehabilitation program. * Tell your doctor if you are feeling depressed. Feelings of sadness are common after a heart attack, but it is important that you speak to someone if you are feeling overwhelmed by these feelings. * If you are having chest pain, call 911 for an ambulance. Do NOT drive yourself to the hospital. * Ask your family members to learn CPR. * Learn to take your own blood pressure and pulse. Keep a record of your results. Ask your doctor when you should seek emergency medical attention. He or she will tell you which blood pressure reading is dangerous. Lifestyle Changes: * Maintain a healthy weight. Get help to lose any extra pounds. * Cut back on salt. * Limit canned, dried, packaged, and fast foods. * Don't add salt to your food. * Season foods with herbs instead of salt when you cook. * Break the smoking habit. Enroll in a stop-smoking program to improve your chances of success. * Limit fatty foods. * Ask your doctor about having your lipid levels checked regularly. * Build up your activity according to your doctor's recommendation. * Ask your doctor when it's okay to resume sexual activity. * Try to manage stress. Follow Up: It is important for you to keep your follow up appointments with your medical provider. Current Hospital Diet Patient's current hospital diet: AHA Diet (Heart Healthy) Discharge Diet Recommended Diet: AHA Diet (Heart Healthy) Pending Studies Studies pending at discharge: no Laboratory Results Lipid Panel Test 02/21/17 07:29 Range/Units Triglycerides Level 158 H 0-150 mg/dl Cholesterol Level 134 0-200 mg/dl HDL Cholesterol 30 mg/dl Cholesterol/HDL Ratio 4.5 LDL Cholesterol, Calculated 72 mg/dl Medical Emergencies . Who to Call and When: Medical Emergencies: If at any time you feel your situation is an emergency, please call 911 immediately. Call 911 immediately or go to your nearest Emergency Room if you experience any of the following: Warning Signs and Symptoms of a Heart Attack * Chest pain that is not relieved by medication * Shortness of breath . Non-Emergent Contact Non-Emergency issues call your: Primary Care Provider, Hospital Doctor Call Non-Emergent contact if: you have a fever . . "Provider Documentation" section prepared by Flora Frost. . AMI Core Measures Reason no ASA as I/P: Treatment provided - N/A Reason no ASA at D/C: Treatment provided - N/A Reason no statin as I/P: Treatment provided - N/A Reason no statin at D/C: Treatment provided - N/A VTE Core Measure Inpt VTE Proph given/why not?: Enoxaparin (Lovenox)SQ, T.E.D. Stockings, SCD's
[2017-02-24] MEDS ORDERED: ATOR-24 PO (11:45)
--- NOTE | 2017-02-24 11:47 | Discharge Summary ---
Discharge Summary Date of Service Feb 24, 2017. Discharge Summary Admission Date: Feb 20, 2017 at 19:05 Discharge Date: Feb 24, 2017 Discharge Disposition: Home Principal Diagnosis: Atrial fibrillation Problems/Secondary Diagnoses: GERD, Bronchiectasis, Hyponatremia, NSTEMI Medication Reconciliation New Medications: Atorvastatin (Lipitor) 40 Mg Tab 1 TAB PO HS for 30 Days, #30 TAB NS Losartan Potassium (Losartan Potassium) 50 Mg Tab 1 TAB PO DAILY for 15 Days, #15 TAB Metoprolol Tartrate (Lopressor) 25 Mg Tab 25 MG PO BID for 30 Days, #60 TAB Rivaroxaban (Xarelto) 15 Mg Tab 15 MG PO DAILY@1700 for 30 Days, #30 TAB Continued Medications: Aspirin Enteric Coated (Ecotrin Or Generic *) 81 Mg Ectab 81 MG PO DAILY, 0 Refills Bimatoprost (Lumigan) 0.01 % Mary 1 DROPS OP HS for 30 Days, #2.5 ML 3 Refills Calcium/Vitamin D (Os-Gil 500 Plus D) Tab 1 TAB PO BID, TAB Fish Oil ([place]oka-3) 1 Ea Cap 1 CAP PO DAILY, CAP Levothyroxine (Synthroid *) 0.075 Mg Tab 0.075 MG PO DAILY, 0 Refills Lorazepam (Lorazepam) 1 Mg Tab 1 MG PO DAILY PRN for Insomnia Magnesium (Magnesium 250 mg) 1 Tab Tab 500 MG PO DAILY Multivitamin (Multivitamin) Tab 1 TAB PO DAILY, TAB Psyllium (Metamucil Powder) Powd 1 PACK PO DAILY, PACK Pyridoxine (Vitamin B6) 100 Mg Tab 100 MG PO DAILY, TAB Vitamin E (Vitamin E) 400 Unit Tab 800 MG PO DAILY Discontinued Medications: Amlodipine (Norvasc) 2.5 Mg Tab 2.5 MG PO DAILY, TAB Losartan Potassium (Cozaar) 100 Mg Tab 100 MG PO QAM for 30 Days, #30 TAB 5 Refills Discharge Exam Review of Systems: Constitutional: No fever, No chills, No sweats, No weight loss, No weakness Eyes: No worsening of vision ENT: No hearing loss Respiratory: No cough, No sputum, No wheezing, No shortness of breath, No dyspnea on exertion, No dyspnea at rest Cardiovascular: No chest pain, No orthopnea Abdomen: No pain, No nausea, No vomiting Musculoskeletal: No joint pain, No muscle pain Genitourinary - Female: No dysuria, No urinary frequency, No hematuria Neurologic: No memory loss, No paralysis, No weakness Psychiatric: No depression symptoms Endocrine: No fatigue Hematologic / Lymphatic: No abnormal bleeding/bruising Integumentary: No rash, No itch Physical Exam: General Appearance: WD/WN, no apparent distress Eyes: normal inspection, PERRL ENT: hearing grossly normal Neck: supple, no JVD Respiratory/Chest: lungs clear, normal breath sounds, no respiratory distress Cardiovascular: regular rate, rhythm, no murmur, normal peripheral pulses Abdomen / GI: normal bowel sounds, non tender, soft Extremities: no calf tenderness, no pedal edema Neurologic/Psychiatric: no motor/sensory deficits, alert, normal mood/affect , oriented x 3 Skin: no rash Hospital Course Mrs Taylor was admitted to [facility] 02/20/17 to 02/24/17. Initial H&P: This is a 89 yo F with PMHx of CLL, breast cancer s/p lumpectomy, HTN, hx of LLL pulmonary nodules, s/p bronchoscopy with lavage on 02/[address] Ziegler which identified E.coli in the lungs where the patient was placed on Bactrim. She presented to the pulmonary clinic today for routine follow up with increased generalized malaise. She also notes a rash which developed on bilateral thighs during use of Bactrim so was instructed to stop taking this. The patient was sent to the ER due to nausea, vomiting, and clinically dry appearance for labs and IVFs. The patient is seen with her brother Chi, and [id number] Pat at bedside who help supply history. Pt states "This is the worst I've ever felt in my life." She reports feeling worse since having a bronchoscopy completed on 02/08. Pt notes she has a heaviness over her chest, but denies pain or shortness of breath. She had taken a total of 7 days of Bactrim, and stopped due to a rash on her bilateral thighs which was thought to be an allergic reaction. At this point the rash has resolved. She notes being able to participate in ADLs, and lives independently at [facility]. She has been having ongoing nausea, dry heaves, and vomiting since the bronchoscopy. Pt denies hematemesis. She has only been able to drink coke and gingerale, and eat small amounts of food intermittently. She denies diarrhea or constipation, and last BM was this morning. She denies hematochezia or melena. HOSPITAL COURSE: She was admitted, given IV fluids for rehydration, had an elevated troponin with EKG changes and was found to have had an anterior wall CO, treated conservatively, and also went into atrial fibrillation with RVR, which was rate controlled with Metoprolol, and she converted to NSR after Digoxin. Other issues were she had a bronchoscopy 02/08 for chronic cough and bronchial washings showed this to be E Coli. She was treated with Bactrim but did not tolerate it, so she was treated with IV Rocephin throughout her hospital stay. She required oxygen throughout her stay but was weaned to room air by discharge. She was found to have reflux which could have contributed to her pulmonary issues. Issues outlined further below: Paroxysmal atrial fibrillation - Started on Xarelto 15mg daily for anticoagulation - Titrated up to Metoprolol Tartrate 25mg BID - Was given Digoxin on 02/23/17, and converted back to NSR and remained in NSR on 02/24/17 Anterior wall CO - Followed by Dr Hayes throughout hospital stay - STOP Amlodipine after CO per Cardiology - Added Atorvastatin 40mg daily - Continue daily Aspirin 81mg - Echo 02/21/17: Left ventricular systolic function is moderately reduced. Ejection fraction = 40%. Moderate to large area of akinesis involving the mid and distal anterior wall , adjacent anteroseptum, and the entire apex. There is mild mitral regurgitation. There is mild to moderate tricuspid regurgitation. 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 - Chest X-ray 02/23/17: 1. Stable slight interval decrease in bibasilar opacities with persistent small pleural effusions and mild pulmonary vascular congestion. No perri pulmonary edema. Hypoxia - Had a nocturnal pulse oximetry, did not qualify for home oxygen. Was weaned to room air on 02/23/17 - Could consider home sleep study if needed GERD - Continue Protonix 40mg daily - Recommended pt keep her head upright, avoid caffeine/spicy foods - Could consider outpatient barium swallow or Upper GI studies if worsens Hypothyroidism - TSH 7.6 - Continued home dose 75mcg, pt had been taking it at night with other medications, advised to take it first thing in AM - Would recommend rechecking TSH in 4-6 weeks Hyponatremia - Na 120 on admission, 134 on discharge - Was likely multifactorial from dehydration, illness - resolved with fluid restriction - Urine osm 596, serum osm 297 - on admission E. Coli bronchial washings - From bronchoscopy 02/08 as an outpatient. - Received Rocephin IV, two days of Clindamycin were given but stopped Hyperkalemia, resolved - Was likely due to dehydration, resolved w/IV fluids History of R sided breast cancer and CLL - No issues during admission. VTE: Xarelto Dispo: Was discharged home to her brothers house (per pt preference). Will go back to the [facility] eventually. Code status: DNR FOR PCP TO FOLLOW UP - If Losartan needs to be increased back to 100mg daily, at discharge was reinstituted at 50mg daily - If GERD persists, to consider outpatient upper GI studies - If tolerating new medications (Xarelto, Beta pavithra, Statin) - Recheck electrolytes Total Time Spent: Greater than 30 minutes ([facility]) This includes examination of the patient, discharge planning, medication reconciliation, and communication with other providers. Discharge Instructions Please refer to the electronic Patient Visit Report (Discharge Instructions) for additional information. Follow-Up - Follow up with PCP within a week. Additional Copies To Myrna Chavez M.D. Resident Tracking Resident Involvement: Resident Care Provided Care Provided: Adult Hospital Medicine
[2017-02-24 11:55] VITALS: BP 121/69; PULSE 81; TEMP 36.6; O2SAT 95
== END 2017-02-24 14:02 | disposition home health service (06) | DRG 280 ==
LOC: C.EDB 16:05 → C.2T 19:05 → ENRESERV 19:15
PROVIDERS: ADMIT Internal Medicine; ATTEND Family Medicine
PROC: 0W993ZZ Drainage of Right Pleural Cavity, Percutaneous Approach (ICD-10-PCS; principal; 2017-02-21)
DX: I21.09 ST elevation (STEMI) myocardial infarction involving other coronary artery of anterior wall (principal); J18.9 Pneumonia, unspecified organism; J90 Pleural effusion, not elsewhere classified; E87.1 Hypo-osmolality and hyponatremia; C91.11 Chronic lymphocytic leukemia of B-cell type in remission; I50.9 Heart failure, unspecified; I48.0 Paroxysmal atrial fibrillation; E87.5 Hyperkalemia; I11.0 Hypertensive heart disease with heart failure; E78.00 Pure hypercholesterolemia, unspecified; E86.0 Dehydration; E03.9 Hypothyroidism, unspecified; K21.9 Gastro-esophageal reflux disease without esophagitis; Z66 Do not resuscitate; Z79.82 Long term (current) use of aspirin; Z79.899 Other long term (current) drug therapy; Z85.3 Personal history of malignant neoplasm of breast

== ENCOUNTER → 2017-03-01 | Outpatient (CLI) | payer OTHER ==
[~2017-03-01] MED LIST changes: +ATOR-24 PO; +CZR50 PO; -DORZ1SOL6 OP; +LPR25 PO; -OMEP40CA PO; +PYRI100T4 PO; +VITA1TAB4 PO; +XRL15 PO; -[UNRECOGNIZED DRUG - CODE] OTB
[2017-03-01 20:24] LABS: BLOOD UREA NITROGEN 14 mg/dl (7-18); BUN/CREATININE RATIO 14.8 (10-20); CALCIUM 8.3 mg/dl (8.5-10.1); CARBON DIOXIDE 28 mmol/L (21-32); CHLORIDE 99 mmol/L (98-107); CREATININE 0.96 mg/dl (0.60-1.20); GLUCOSE 96 mg/dl (70-99); POTASSIUM 4.1 mmol/L (3.5-5.1); SODIUM 133 mmol/L (136-145)
== END | disposition home or self-care (01) ==
LOC: C.LAB 19:07
PROVIDERS: ATTEND Family Medicine
DX: E86.0 Dehydration (principal)

== ENCOUNTER → 2017-04-13 | Outpatient (CLI) | payer OTHER ==
[~2017-04-13] MED LIST changes: -ATOR-24 PO
== END | disposition home or self-care (01) ==
LOC: C.LAB 09:36
PROVIDERS: ATTEND Physician Assistant
DX: C91.10 Chronic lymphocytic leukemia of B-cell type not having achieved remission (principal)